=== PATIENT | male | born 1940 | race Caucasian/White ===

== ENCOUNTER 2016-05-06 16:34 | Inpatient (IN) | payer MEDICARE, OTHER ==
[2016-05-06] MEDS ORDERED: NITROGLYCERIN OINT 1 INCH/GM PACKET TOPICAL STA (16:48)
[2016-05-06] MEDS ORDERED: IPRATROPIUM-ALBUTEROL 3 ML NEB INHALATION STA (16:48)
--- NOTE | 2016-05-06 17:07 | ED ---
General Adult HPI - General Chief complaint: Recheck/Abnormal Lab/Rx Stated complaint: Sob Time Seen by Provider: 05/06/16 16:40 Source: RN/MD, EMS, RN notes reviewed Mode of arrival: EMS - History of Present Illness Initial comments: This is a 75-year-old male who presents to the emergency department from [facility] patient was seen here because he was complaining of sinus infection and a urinary tract infection according to the patient. However upon working the patient up they noticed an elevated troponin of 6.5 and they called him a non-STEMI. he still complaining of some congestion in his face which she believes to be a sinusitis. Patient denies ever having any chest pain recently. Patient denies any difficulty breathing or shortness of breath. Patient denies any recent fever or chills. Patient denies any abdominal pain patient denies nausea vomiting or diarrhea. Patient denies headache patient denies any numbness weakness per patient denies being lightheaded dizzy or having any near syncopal episode. - Related Data Home Medications Medication Instructions Recorded Confirmed Aspirin EC [Ecotrin Low Dose] 81 mg PO DAILY 05/06/16 05/06/16 Cefuroxime Axetil [Ceftin] 500 mg PO BID 05/06/16 05/06/16 Furosemide [Lasix] 20 mg PO DAILY 05/06/16 05/06/16 Insulin Glargine [Lantus] 15 unit SQ HS 05/06/16 05/06/16 Insulin Glargine [Lantus] 70 unit SQ QA 05/06/16 05/06/16 Lisinopril [Zestril] 10 mg PO DAILY 05/06/16 05/06/16 Loratadine [Claritin] 10 mg PO DAILY 05/06/16 05/06/16 Lovastatin [Mevacor] 40 mg PO HS 05/06/16 05/06/16 Omeprazole [PriLOSEC] 20 mg PO DAILY 05/06/16 05/06/16 Ondansetron [Zofran ODT] 4 mg PO Q12HR PRN 05/06/16 05/06/16 Tamsulosin HCl [Flomax] 0.4 mg PO DAILY 05/06/16 05/06/16 Allergies Allergy/AdvReac Type Severity Reaction Status Date / Time codeine Allergy Anaphylaxis Verified 05/06/16 17:07 Review of Systems ROS Statement: Those systems with pertinent positive or pertinent negative responses have been documented in the HPI. ROS Other: All systems not noted in ROS Statement are negative. Past Medical History Past Medical History: Diabetes Mellitus, Hyperlipidemia, Hypertension, Myocardial Infarction (MD), Thyroid Disorder Additional Past Medical History / Comment(s): CKD, GERD, History of Any Multi-Drug Resistant Organisms: None Reported Past Surgical History: Appendectomy, Cholecystectomy, Coronary Bypass/CABG, Heart Catheterization With Stent Additional Past Surgical History / Comment(s): Ankle sugery, hip surgery Past Psychological History: No Psychological Hx Reported Smoking Status: Former smoker Past Alcohol Use History: None Reported Past Drug Use History: None Reported General Exam - General Exam Comments Initial Comments: GENERAL: Patient is well-developed and well-nourished. Patient is nontoxic and well- hydrated and is in no acute distress. ENT: Neck is soft and supple. No significant lymphadenopathy is noted. Oropharynx is clear. Moist mucous membranes. Neck has full range of motion without eliciting any pain. EYES: The sclera were anicteric and conjunctiva were pink and moist. Extraocular movements were intact and pupils were equal round and reactive to light. Eyelids were unremarkable. PULMONARY: Significantly decreased breath sounds CARDIOVASCULAR: There is a regular rate and rhythm without any murmurs gallops or rubs. ABDOMEN: Soft and nontender with normal bowel sounds. No palpable organomegaly was noted. There is no palpable pulsatile mass. SKIN: Skin is clear with no lesions or rashes and otherwise unremarkable. NEUROLOGIC: Patient is alert and oriented x3. Cranial nerves II through XII are grossly intact. Motor and sensory are also intact. Normal speech, volume and content. Symmetrical smile. MUSCULOSKELETAL: Normal extremities with adequate strength and full range of motion. No lower extremity swelling or edema. No calf tenderness. LYMPHATICS: No significant lymphadenopathy is noted PSYCHIATRIC: Normal psychiatric evaluation. Normal interpersonal interactions appears functionally intact in deals appropriately with others. No signs of depression. No signs of anxiety. Course Vital Signs 05/06/16 05/06/16 05/06/16 16:37 17:00 17:12 Temperature 98.2 F Pulse Rate 79 76 78 Respiratory 20 Rate Blood Pressure 111/60 O2 Sat by Pulse 96 Oximetry 05/06/16 05/06/16 18:01 18:42 Temperature Pulse Rate 77 80 Respiratory 18 20 Rate Blood Pressure 103/63 109/62 O2 Sat by Pulse 93 L 94 L Oximetry Medical Decision Making - Medical Decision Making EKG shows a normal sinus rhythm at 77 bpm SC interval 148 QRS is under 20 2T intervals 448 QTC is 506. EKG is compared to an old EKG there are no acute abnormalities noted Chest x-ray shows congestive heart failure. Troponin came down from the previous troponin done at the outside facility. Patient remains chest pain- free. I gave the patient Lasix. Patient has an obvious urinary tract infection and was given Levaquin at the other facility. - Lab Data Result diagrams: 05/06/16 17:10 05/06/16 17:10 Lab Results 05/06/16 05/06/16 05/06/16 Range/Units 17:10 17:10 17:10 WBC 10.7 H (3.8-10.6) k/uL RBC 3.55 L (4.30-5.90) m/uL Hgb 10.0 L (13.0-17.5) gm/dL Hct 31.5 L (39.0-53.0) % MCV 88.8 (80.0-100.0) fL MCH 28.2 (25.0-35.0) pg MCHC 31.8 (31.0-37.0) g/dL RDW 14.6 (11.5-15.5) % Plt Count 212 (150-450) k/uL Neutrophils % 93 % Lymphocytes % 3 % Monocytes % 3 % Eosinophils % 0 % Basophils % 1 % Neutrophils # 9.9 H (1.3-7.7) k/uL Lymphocytes # 0.3 L (1.0-4.8) k/uL Monocytes # 0.3 (0-1.0) k/uL Eosinophils # 0.0 (0-0.7) k/uL Basophils # 0.1 (0-0.2) k/uL PT (9.0-12.0) sec INR (<1.1) APTT (22.0-30.0) sec Sodium 138 (137-145) mmol/L Potassium 4.8 (3.5-5.1) mmol/L Chloride 99 (98-107) mmol/L Carbon Dioxide 26 (22-30) mmol/L Anion Gap 13 mmol/L BUN 62 H (9-20) mg/dL Creatinine 2.42 H (0.66-1.25) mg/dL Est GFR (MDRD) Af Amer 32 (>60 ml/min/1.73 sqM) Est GFR (MDRD) Non-Af 26 (>60 ml/min/1.73 sqM) Glucose 299 H (74-99) mg/dL Calcium 8.0 L (8.4-10.2) mg/dL Magnesium 1.5 L (1.6-2.3) mg/dL Total Bilirubin 0.8 (0.2-1.3) mg/dL AST 233 H (17-59) U/L ALT 227 H (21-72) U/L Alkaline Phosphatase 72 (38-126) U/L Total Creatine Kinase 164 (55-170) U/L CK-MB (CK-2) 4.8 H* (0.0-2.4) ng/mL CK-MB (CK-2) Rel Index 2.9 Troponin I 4.400 H* (0.000-0.034) ng/mL NT-Pro-B Natriuret Pep pg/mL Total Protein 5.8 L (6.3-8.2) g/dL Albumin 3.2 L (3.5-5.0) g/dL Urine Color Urine Appearance (Clear) Urine pH (5.0-8.0) Ur Specific [place] (1.001-1.035) Urine Protein (Negative) Urine Glucose (UA) (Negative) Urine Ketones (Negative) Urine Blood (Negative) Urine Nitrate (Negative) Urine Bilirubin (Negative) Urine Urobilinogen (<2.0) mg/dL Ur Leukocyte Esterase (Negative) Urine RBC (0-5) /hpf Urine WBC (0-5) /hpf Urine WBC Clumps (None) /hpf Ur Squamous Epith Cells (0-4) /hpf Urine Bacteria (None) /hpf Hyaline Casts (0-2) /lpf Urine Mucus (None) /hpf 05/06/16 05/06/16 05/06/16 Range/Units 17:10 17:10 17:10 WBC (3.8-10.6) k/uL RBC (4.30-5.90) m/uL Hgb (13.0-17.5) gm/dL Hct (39.0-53.0) % MCV (80.0-100.0) fL MCH (25.0-35.0) pg MCHC (31.0-37.0) g/dL RDW (11.5-15.5) % Plt Count (150-450) k/uL Neutrophils % % Lymphocytes % % Monocytes % % Eosinophils % % Basophils % % Neutrophils # (1.3-7.7) k/uL Lymphocytes # (1.0-4.8) k/uL Monocytes # (0-1.0) k/uL Eosinophils # (0-0.7) k/uL Basophils # (0-0.2) k/uL PT 12.6 H (9.0-12.0) sec INR 1.3 (<1.1) APTT 31.0 H (22.0-30.0) sec Sodium (137-145) mmol/L Potassium (3.5-5.1) mmol/L Chloride (98-107) mmol/L Carbon Dioxide (22-30) mmol/L Anion Gap mmol/L BUN (9-20) mg/dL Creatinine (0.66-1.25) mg/dL Est GFR (MDRD) Af Amer (>60 ml/min/1.73 sqM) Est GFR (MDRD) Non-Af (>60 ml/min/1.73 sqM) Glucose (74-99) mg/dL Calcium (8.4-10.2) mg/dL Magnesium (1.6-2.3) mg/dL Total Bilirubin (0.2-1.3) mg/dL AST (17-59) U/L ALT (21-72) U/L Alkaline Phosphatase (38-126) U/L Total Creatine Kinase (55-170) U/L CK-MB (CK-2) (0.0-2.4) ng/mL CK-MB (CK-2) Rel Index Troponin I (0.000-0.034) ng/mL NT-Pro-B Natriuret Pep 92354 pg/mL Total Protein (6.3-8.2) g/dL Albumin (3.5-5.0) g/dL Urine Color Yellow Urine Appearance Turbid (Clear) Urine pH 5.0 (5.0-8.0) Ur Specific [place] 1.009 (1.001-1.035) Urine Protein 1+ H (Negative) Urine Glucose (UA) Trace H (Negative) Urine Ketones Negative (Negative) Urine Blood Small H (Negative) Urine Nitrate Negative (Negative) Urine Bilirubin Negative (Negative) Urine Urobilinogen <2.0 (<2.0) mg/dL Ur Leukocyte Esterase Large H (Negative) Urine RBC 5 (0-5) /hpf Urine WBC >182 H (0-5) /hpf Urine WBC Clumps Many H (None) /hpf Ur Squamous Epith Cells 1 (0-4) /hpf Urine Bacteria Rare H (None) /hpf Hyaline Casts 205 H (0-2) /lpf Urine Mucus Rare H (None) /hpf Critical Care Time Critical Care Time: Yes Total Critical Care Time: 35 Disposition Clinical Impression: Pulmonary edema, Urinary tract infection, Non-STEMI (non-ST elevated myocardial infarction), Renal failure, acute Disposition: ADMITTED IP TO THIS [facility] Time of Disposition: 18:55
[2016-05-06 17:22] LABS: Basophils # (A) 0.1 k/uL (0-0.2); Basophils % (A) 1 %; CH 29.4; CHCM 33.4; Eosinophils % (A) 0 %; HCT 31.5 % (39.0-53.0); HDW 3.24; Luc # (Auto) 0.03; Luc % (Auto) 0; Lymphocytes # (A) 0.3 k/uL (1.0-4.8); Lymphocytes % (A) 3 %; MCH 28.2 pg (25.0-35.0); MCHC 31.8 g/dL (31.0-37.0); MCV 88.8 fL (80.0-100.0); Mean Platelet Volume 9.4; Monocytes # (A) 0.3 k/uL (0-1.0); Monocytes % (A) 3 %; Neutrophils # (A) 9.9 k/uL (1.3-7.7); Neutrophils % (A) 93 %; RBC 3.55 m/uL (4.30-5.90); RDW 14.6 % (11.5-15.5); WBC 10.7 k/uL (3.8-10.6); WBC (Perox) 11.39
[2016-05-06 17:30] LABS: INR 1.3 (<1.1); Magnesium 1.5 mg/dL (1.6-2.3); Potassium 4.8 mmol/L (3.5-5.1); Prothrombin Time 12.6 sec (9.0-12.0); Total Bilirubin 0.8 mg/dL (0.2-1.3); Total Protein 5.8 g/dL (6.3-8.2)
[2016-05-06 17:31] LABS: Appearance,Urine Turbid (Clear); Bacteria,Urine Rare /hpf; Bilirubin,Urine Negative (Negative); Glucose,Urine (UA) Trace (Negative); Ketones,Urine Negative (Negative); Leukocyte Esterase,Urine Large (Negative); Mucus,Urine Rare /hpf; Nitrite,Urine Negative (Negative); Particle Count 31128; Protein,Urine 1+ (Negative); RBC,Urine 5 /hpf (0-5); Specific Gravity,Urine 1.009 (1.001-1.035); Squamous Epithelial Cell,Urine 1 /hpf (0-4); UA Billing (MACRO vs. MICRO) MICRO; Urobilinogen,Urine <2.0 mg/dL (<2.0); WBC,Urine >182 /hpf (0-5)
--- NOTE | 2016-05-06 17:37 | XR ---
EXAMINATION TYPE: XR chest 2V DATE OF EXAM: 05/06/2016 5:33 PM COMPARISON: Q. Day HISTORY: Chest pain TECHNIQUE: Frontal and lateral views of the chest are obtained. FINDINGS: The heart appears enlarged. There is pulmonary vascular congestion and pulmonary interstit ial edema. There is blunting of both costophrenic angles posteriorly on the lateral view. There are c hest leads. There are sternal wires. IMPRESSION: There is evidence of congestive heart failure with pulmonary interstitial edema and pleu ral effusions that is unchanged compared to exam earlier today. Previous exam is from [facility].
[2016-05-06] MEDS: HEPARIN SODIUM,PORCINE/D5W PMX 25,000 UNIT in DEXTROSE/WATER 1 500ML.BAG IV SCH (17:58)
[2016-05-06 18:11] LABS: Creatine Kinase MB 4.8 ng/mL (0.0-2.4); Troponin I 4.4 ng/mL (0.000-0.034)
[2016-05-06] MEDS ORDERED: FUROSEMIDE 10 MG/ML 4 ML VIAL IV STA (18:53)
[2016-05-06] MEDS ORDERED: NITROGLYCERIN SL TABS 0.4 MG TAB SUBLINGUAL PRN (18:56)
[2016-05-06 21:10] LABS: Glucose,Whole Blood 412 mg/dL (75-99)
[2016-05-06] MEDS ORDERED: INSULIN GLARGINE 100 UNIT/ML 10 ML VIAL SQ SCH (21:15)
[2016-05-06] MEDS ORDERED: LEVOFLOXACIN 750MG-D5W PMX 750 MG in DEXTROSE/WATER 1 150ML.BAG IVPB SCH (22:00)
[2016-05-06] MEDS: INSULIN LISPRO (humaLOG) 300 UNIT/3 ML VIAL SQ SCH (22:07)
[2016-05-06 23:09] LABS: Hemoglobin A1C 8.2 % (4.2-6.1)
[2016-05-06 23:23] LABS: Creatine Kinase MB 5.1 ng/mL (0.0-2.4); Troponin I 3.32 ng/mL (0.000-0.034)
[2016-05-06] MEDS: FUROSEMIDE 10 MG/ML 2 ML VIAL IV SCH (23:36)
[2016-05-06] MEDS: NITROGLYCERIN OINT 1 INCH/GM PACKET TOPICAL SCH (23:59)
[2016-05-07] MEDS ORDERED: HEPARIN SODIUM,PORCINE 5,000 UNIT/ML 1 ML VIAL IV STA (00:40)
[2016-05-07] MEDS: FUROSEMIDE 10 MG/ML 2 ML VIAL IV SCH ×2 (02:58→08:24)
[2016-05-07 06:11] LABS: Glucose,Whole Blood 405 mg/dL (75-99)
[2016-05-07 06:41] LABS: Cholesterol 187 mg/dL (<200); HDL Cholesterol 36 mg/dL (40-60); Triglycerides 141 mg/dL (<150)
[2016-05-07] MEDS: INSULIN LISPRO (humaLOG) 300 UNIT/3 ML VIAL SQ SCH ×4 (06:57→21:08)
[2016-05-07] MEDS: NITROGLYCERIN OINT 1 INCH/GM PACKET TOPICAL SCH ×4 (06:57→23:17)
[2016-05-07 07:27] LABS: Creatine Kinase MB 4.9 ng/mL (0.0-2.4)
[2016-05-07 07:28] LABS: Troponin I 2.71 ng/mL (0.000-0.034)
[2016-05-07] MEDS: ASPIRIN 325 MG TAB PO SCH (08:24)
[2016-05-07] MEDS: INSULIN GLARGINE 100 UNIT/ML 10 ML VIAL SQ SCH ×2 (08:28→20:57)
--- NOTE | 2016-05-07 10:19 | P.CRDCN ---
History of Present Illness Consult date: 05/07/16 Requesting physician: Ishmael Fields Consult reason: congestive heart failure Chief complaint: Sinus infection History of present illness: This is a 75-year-old gentleman with history of coronary artery disease and prior bypass surgery several years ago, patient states approximately 3 years ago he underwent stent placement at [facility], details of that currently unavailable, states that he presented to [facility] with symptoms of it sinus infection as well as UTI. According to the patient he states that he was in [facility] a couple of weeks ago.sPatient states she's been feeling extremely weak at home, has not been eating for the past couple of days. He has had a productive cough of white and yellow sputum and has noticed himself to be quite wheezy. He denies having any chest pain. Along with other labs data, patient had a troponin drawn at [place] which came back to be abnormal, and for this reason the patient was transferred to [facility] for further evaluation. Troponin at [place] was 6.5. BNP level 3270. BUN 58, creatinine 2.7, sodium 137, potassium 4.1. WBC 12.8, hemoglobin 11.1, platelet count 213. EKG on arrival there showed a normal sinus rhythm with incomplete left bundle branch block pattern and nonspecific inferior lateral ST-T wave changes. EKG on arrival here showed normal sinus rhythm and incomplete left bundle branch block pattern and minimal inferior lateral ST-T wave changes. Lab data on arrival here, hemoglobin 10.0, potassium 4.8, BUN 62, creatinine 2.4. AST 233, ALT 227, mag level I.5, BNP level 19,400, troponin 4.4, 3.3, 2.7. Positive UTI. Past Medical History Past Medical History: Diabetes Mellitus, GERD/Reflux, Hyperlipidemia, Hypertension, Myocardial Infarction (OR), Prostate Disorder, Thyroid Disorder Additional Past Medical History / Comment(s): GERD, kidney stones,shingles few years ago, sinus infection, stated had uti and blood in urine idc placed when at [facility] 02-18-17 till 04-25-16.ckd was previous;y charted but when asked if had any kidney dz pt stated no. Last Myocardial Infarction Date:: 1993 History of Any Multi-Drug Resistant Organisms: None Reported Past Surgical History: Appendectomy, Cholecystectomy, Coronary Bypass/CABG, Heart Catheterization With Stent, Tonsillectomy Additional Past Surgical History / Comment(s): ltAnkle orif-plate in place,rt hip surgery d/t broken hip pt stated not sure what they did.quad bypass 1993- ( at [facility]). few years after cabg had heart cath with stents(at [facility]) Past Anesthesia/Blood Transfusion Reactions: No Reported Reaction Date of Last Stent Placement:: unsure of date Past Psychological History: No Psychological Hx Reported Smoking Status: Former smoker Past Alcohol Use History: None Reported Additional Past Alcohol Use History / Comment(s): started smoking at age 17, smoked 1ppd, cut down to 3 cig per day recently then quit 3 days ago Past Drug Use History: None Reported - Past Family History Father Family Medical History: No Reported History Mother Family Medical History: No Reported History Medications and Allergies Home Medications Medication Instructions Recorded Confirmed Type Aspirin EC [Ecotrin Low Dose] 81 mg PO DAILY 05/06/16 05/06/16 History Cefuroxime Axetil [Ceftin] 500 mg PO BID 05/06/16 05/06/16 History Furosemide [Lasix] 20 mg PO DAILY 05/06/16 05/06/16 History Insulin Glargine [Lantus] 15 unit SQ HS 05/06/16 05/06/16 History Insulin Glargine [Lantus] 70 unit SQ QA 05/06/16 05/06/16 History Lisinopril [Zestril] 10 mg PO DAILY 05/06/16 05/06/16 History Loratadine [Claritin] 10 mg PO DAILY 05/06/16 05/06/16 History Lovastatin [Mevacor] 40 mg PO HS 05/06/16 05/06/16 History Omeprazole [PriLOSEC] 20 mg PO DAILY 05/06/16 05/06/16 History Ondansetron [Zofran ODT] 4 mg PO Q12HR PRN 05/06/16 05/06/16 History Tamsulosin HCl [Flomax] 0.4 mg PO DAILY 05/06/16 05/06/16 History Allergies Allergy/AdvReac Type Severity Reaction Status Date / Time codeine Allergy Anaphylaxis Verified 05/06/16 17:07 Physical Exam Vitals: Vital Signs Temp Pulse Pulse Resp BP BP Pulse Ox 05/07/16 04:00 97.2 F L 80 18 100/55 96 05/07/16 00:00 97 F L 84 18 101/57 93 L 05/06/16 20:30 97 F L 83 18 118/57 95 05/06/16 19:23 97.3 F L 79 18 108/65 95 Intake and Output 05/06/16 05/07/16 05/07/16 22:59 06:59 14:59 Intake Total 132 165.636 Output Total 900 Balance -768 165.636 Intake: Intake, IV Titration 132 165.636 Amount Heparin Sodium,Porcine/ 132 165.636 D5w Pmx 25,000 unit In Dextrose/Water 1 500ml. bag @ 10.549 UNITS/KG/HR 20 mls/hr IV .Q24H COUNT INCLUDES THE [facility] Rx #:[id number] Output: Urine 900 Other: Voiding Method Indwelling Catheter Indwelling Catheter Indwelling Catheter # Bowel Movements 1 Weight 92.5 kg 92.5 kg Patient Weight 05/08/16 06:59 Weight 92.5 kg PHYSICAL EXAMINATION: HEENT: Head is atraumatic, normocephalic. Pupils equal, round. Neck is supple. There is elevated jugular venous pressure. HEART EXAMINATION: S1 and S2 1 systolic murmur is heard. CHEST EXAMINATION: Lungs reveal scattered coarse wheezes with diminished air entry to bilateral bases. ABDOMEN: Soft, obese, nontender. Bowel sounds are heard. No organomegaly noted. EXTREMITIES: 2+ peripheral pulses with trace evidence of peripheral edema and no calf tenderness noted. NEUROLOGIC patient is awake, alert and oriented -3. . Results 05/06/16 17:10 05/06/16 17:10 Cardiac Enzymes 05/06/16 05/07/16 Range/Units 22:26 05:53 CK-MB (CK-2) 5.1 H* 4.9 H* (0.0-2.4) ng/mL Troponin I 3.320 H* 2.710 H* (0.000-0.034) ng/mL Coagulation 05/06/16 05/07/16 Range/Units 22:26 05:57 APTT 30.4 H 44.3 H (22.0-30.0) sec Lipids 05/07/16 Range/Units 05:57 Triglycerides 141 (<150) mg/dL Cholesterol 187 (<200) mg/dL HDL Cholesterol 36 L (40-60) mg/dL Current Medications Generic Name Dose Route Start Last Admin Trade Name Freq PRN Reason Stop Dose Admin Aspirin 325 mg 05/07/16 09:00 05/07/16 08:24 Aspirin PO 325 mg DAILY JAVIER Administration Furosemide 20 mg 05/07/16 00:00 05/07/16 08:24 Lasix IV 20 mg Q8HR JAVIER Administration Heparin Sodium/Dextrose 25,000 500 mls @ 20 mls/hr 05/06/16 17:45 05/07/16 07 :01 unit/ IV Solution IV 15.549 units/kg/hr .Q24H JAVIER 29.48 mls/hr Protocol Titration 10.549 UNITS/KG/HR Levofloxacin 750 mg/ IV 150 mls @ 100 mls/hr 05/06/16 22:00 05/06/16 22:08 Solution IVPB 100 mls/hr Q24H JAVIER Administration Insulin Glargine 15 unit 05/06/16 21:15 05/06/16 21:55 Lantus SQ 15 unit HS JAVIER Administration Insulin Glargine 70 unit 05/07/16 09:00 05/07/16 08:28 Lantus SQ 70 unit QAM JAVIER Administration Insulin Human Lispro 0 unit 05/06/16 22:00 05/07/16 06:57 Humalog SQ 8 unit ACHS JAVIER Administration Protocol Nitroglycerin 1 inch 05/07/16 00:00 05/07/16 06:57 Nitro-Bid Oint TOPICAL 1 inch Q6HR JAVIER Administration Nitroglycerin 0.4 mg 05/06/16 18:56 Nitrostat SUBLINGUAL Q5M PRN Chest Pain Intake and Output 05/06/16 05/07/16 05/07/16 22:59 06:59 14:59 Intake Total 132 165.636 Output Total 900 Balance -768 165.636 Intake: Intake, IV Titration 132 165.636 Amount Heparin Sodium,Porcine/ 132 165.636 D5w Pmx 25,000 unit In Dextrose/Water 1 500ml. bag @ 10.549 UNITS/KG/HR 20 mls/hr IV .Q24H COUNT INCLUDES THE [facility] Rx #:[id number] Output: Urine 900 Other: Voiding Method Indwelling Catheter Indwelling Catheter Indwelling Catheter # Bowel Movements 1 Weight 92.5 kg 92.5 kg Patient Weight 05/08/16 06:59 Weight 92.5 kg EKG Interpretations (text) EKG shows normal sinus rhythm with inferior lateral ST-T wave changes. Assessment and Plan Plan: Assessment and plan #1 congestive cardiac failure, unsure of patient's LV function at this time. Currently on IV Lasix. #2 troponin abnormality suggestive of non-Q-wave myocardial infarction. EKG shows normal sinus rhythm with nonspecific inferior lateral ST-T wave changes. #3 known history of coronary artery disease with prior bypass surgery, patient also states he underwent stent placement approximately 3 years ago at [facility]. #4 hypertension Number 5 diabetes #6 hyperlipidemia #7 history of nicotine dependence #8 sinus infection #9 UTI #10 abnormal LFTs, likely secondary to liver congestion #11 acute on chronic renal insufficiency Plan We will obtain records of patient's recent admission to [facility]. We will also request data from [facility] on the patient's recent stent placements. We will repeat an echocardiogram with Doppler study here in view of the abnormal troponins. Continue to diurese the patient with IV Lasix. Continue IV heparin. Statin is currently on hold because of abnormal LFTs, lisinopril currently on hold because of abnormal renal function. It appears the patient may have had a non-STEMI, we need to diurese the patient first. He may require cardiac catheterization down the line. Further recommendations to follow. DNP note has been reviewed, I agree with a documented findings and plan of care. Patient was seen and examined.
[2016-05-07] MEDS ORDERED: IPRATROPIUM-ALBUTEROL 3 ML NEB INHALATION PRN (11:14)
[2016-05-07] MEDS: IPRATROPIUM-ALBUTEROL 3 ML NEB INHALATION SCH ×3 (11:21→19:51)
--- NOTE | 2016-05-07 11:38 | ECHOF ---
Referral Reason:chf MEASUREMENTS -------- HEIGHT: 180.3 cm WEIGHT: 92.1 kg BP: 105/59 IVSd: 1.2 cm (0.6 - 1.1) LVIDd: 5.7 cm (3.9 - 5.3) LVPWd: 1.4 cm (0.6 - 1.1) IVSs: 1.7 cm LVIDs: 5.3 cm LVPWs: 1.4 cm Ao Diam: 3.3 cm (2.0 - 3.7) AV Cusp: 1.7 cm (1.5 - 2.6) LA Diam: 4.4 cm (2.7 - 3.8) MV EXCURSION: 14.924 mm (> 18.000) MV EF SLOPE: 80 mm/s (70 - 150) EPSS: 1.1 cm MV E Car: 1.52 m/s MV DecT: 171 ms MV A Car: 0.92 m/s MV E/A Ratio: 1.64 AR PHT: 348 ms RAP: 5.00 mmHg RVSP: 38.86 mmHg FINDINGS -------- Sinus rhythm. This was a technically difficult study with suboptimal views. The left ventricular size is normal. There is mild concentric left ventricular hypertrophy. There is severe global hypokinesis of LV . Overall left ventricular systolic function is severely impaired with, an EF between 20 - 25 %. The right ventricle is normal in size and function. The left atrium is mildly dilated. The right atrium is normal in size. 1.5mg of Definity was utilized for enhancement of images Aortic valve is trileaflet and is mildly thickened. Trace amount of aortic regurgitation. The mitral valve leaflets are mildly thickened. Mild mitral annular calcification present. Moderate mitral regurgitation is present. Mild tricuspid regurgitation present. The right ventricular systolic pressure, as measured by Doppler, is 38.86mmHg. Pulmonic valve appears structurally normal. The aortic root, ascending aorta and aortic arch are normal. The pericardium is normal. CONCLUSIONS -------- 1. Sinus rhythm. 2. Aortic valve is trileaflet and is mildly thickened. 3. Trace amount of aortic regurgitation. 4. The mitral valve leaflets are mildly thickened. 5. Mild mitral annular calcification present. 6. Moderate mitral regurgitation is present. 7. Mild tricuspid regurgitation present. 8. The right ventricular systolic pressure, as measured by Doppler, is 38.86mmHg. 9. Pulmonic valve appears structurally normal. 10. The aortic root, ascending aorta and aortic arch are normal. 11. The pericardium is normal. 12. This was a technically difficult study with suboptimal views. 13. There is mild concentric left ventricular hypertrophy. 14. There is severe global hypokinesis of LV . 15. Overall left ventricular systolic function is severely impaired with, an EF between 20 - 25 %. 16. The right ventricle is normal in size and function. 17. The left atrium is mildly dilated. 18. The right atrium is normal in size. 19. 1.5mg of Definity was utilized for enhancement of images POWER PLANT ASSISTANT: Kelsie Peguero RDCS
[2016-05-07 12:11] LABS: Glucose,Whole Blood 228 mg/dL (75-99)
--- NOTE | 2016-05-07 12:29 | P.HPIM ---
History of Present Illness H&P Date: 05/07/16 Chief Complaint: gen weakness 75-year-old gentleman with history of CAD status post CABG who was recently admitted to [facility] underwent workup in regards to urinary retention. Patient was sent home on a Liang catheter by Dr. Aguirre. Patient apparently had some workup in regards to his heart, patient had a echocardiogram which revealed a ejection fraction of 40-45% done. Patient over the last few days has been feeling generally weak. Denies having any fevers, chills, nausea, vomiting. Patient has been having some postnasal drip. Patient had a cardiac catheterization 4 years ago had 2 stents placed at that time at [facility] patient had a CABG done in 1993. States to be feeling slightly better at this time. Patient's creatinine at that time was 2 currently is at 2.4. Denies any active chest pain or difficulty breathing at this time. Denies having orthopnea or PND is what this time. Review of Systems All systems: negative (Noted in HPI) Past Medical History Past Medical History: Diabetes Mellitus, GERD/Reflux, Hyperlipidemia, Hypertension, Myocardial Infarction ([place]), Prostate Disorder, Thyroid Disorder Additional Past Medical History / Comment(s): GERD, kidney stones,shingles few years ago, sinus infection, stated had uti and blood in urine idc placed when at [facility] 02-18-17 till 04-25-16.ckd was previous;y charted but when asked if had any kidney dz pt stated no. Last Myocardial Infarction Date:: 1993 History of Any Multi-Drug Resistant Organisms: None Reported Past Surgical History: Appendectomy, Cholecystectomy, Coronary Bypass/CABG, Heart Catheterization With Stent, Tonsillectomy Additional Past Surgical History / Comment(s): ltAnkle orif-plate in place,rt hip surgery d/t broken hip pt stated not sure what they did.quad bypass 1993- ( at [facility]). few years after cabg had heart cath with stents(at [facility]) Past Anesthesia/Blood Transfusion Reactions: No Reported Reaction Date of Last Stent Placement:: unsure of date Past Psychological History: No Psychological Hx Reported Smoking Status: Former smoker Past Alcohol Use History: None Reported Additional Past Alcohol Use History / Comment(s): started smoking at age 17, smoked 1ppd, cut down to 3 cig per day recently then quit 3 days ago Past Drug Use History: None Reported - Past Family History Father Family Medical History: No Reported History Mother Family Medical History: No Reported History Medications and Allergies Home Medications Medication Instructions Recorded Confirmed Type Aspirin EC [Ecotrin Low Dose] 81 mg PO DAILY 05/06/16 05/06/16 History Cefuroxime Axetil [Ceftin] 500 mg PO BID 05/06/16 05/06/16 History Furosemide [Lasix] 20 mg PO DAILY 05/06/16 05/06/16 History Insulin Glargine [Lantus] 15 unit SQ HS 05/06/16 05/06/16 History Insulin Glargine [Lantus] 70 unit SQ QAM 05/06/16 05/06/16 History Lisinopril [Zestril] 10 mg PO DAILY 05/06/16 05/06/16 History Loratadine [Claritin] 10 mg PO DAILY 05/06/16 05/06/16 History Lovastatin [Mevacor] 40 mg PO HS 05/06/16 05/06/16 History Omeprazole [PriLOSEC] 20 mg PO DAILY 05/06/16 05/06/16 History Ondansetron [Zofran ODT] 4 mg PO Q12HR PRN 05/06/16 05/06/16 History Tamsulosin HCl [Flomax] 0.4 mg PO DAILY 05/06/16 05/06/16 History Allergies Allergy/AdvReac Type Severity Reaction Status Date / Time codeine Allergy Anaphylaxis Verified 05/06/16 17:07 Physical Exam Vitals: Vital Signs Temp Pulse Pulse Resp BP BP Pulse Ox 05/07/16 11:20 96.9 F L 81 18 116/59 93 L 05/07/16 11:18 76 05/07/16 08:15 76 24 05/07/16 08:00 97.3 F L 76 24 105/59 05/07/16 04:00 97.2 F L 80 18 100/55 96 05/07/16 00:00 97 F L 84 18 101/57 93 L 05/06/16 20:30 97 F L 83 18 118/57 95 05/06/16 19:23 97.3 F L 79 18 108/65 95 Intake and Output 05/06/16 05/07/16 05/07/16 22:59 06:59 14:59 Intake Total 132 400.836 Output Total 900 Balance -768 400.836 Intake: IV 235.2 Heparin Sodium,Porcine/ 235.2 D5w Pmx 25,000 unit In Dextrose/Water 1 500ml. bag @ 10.549 UNITS/KG/HR 20 mls/hr IV .Q24H JAVIER Rx #:[id number] Intake, IV Titration 132 165.636 Amount Heparin Sodium,Porcine/ 132 165.636 D5w Pmx 25,000 unit In Dextrose/Water 1 500ml. bag @ 10.549 UNITS/KG/HR 20 mls/hr IV .Q24H JAVIER Rx #:[id number] Output: Urine 900 Other: Voiding Method Indwelling Catheter Indwelling Catheter Indwelling Catheter # Bowel Movements 1 Weight 92.5 kg 92.5 kg Patient Weight 05/08/16 06:59 Weight 92.5 kg Gen. appearance alert oriented 3 in no distress Face no sinus tenderness is appreciated Lungs good air entry trace crackles appreciated at the bases Heart S1-S2 heard regular rate and rhythm S3 is not appreciated Abdomen is soft nontender no organomegaly Lower extremities trace edema is appreciated Neuro no focal motor or sensory deficits noted. Results CBC & Chem 7: 05/06/16 17:10 05/06/16 17:10 Labs: Abnormal Lab Results - Last 24 Hours (Table) 05/06/16 05/06/16 05/06/16 Range/Units 21:08 22:26 22:26 APTT (22.0-30.0) sec POC Glucose (mg/dL) 412 H (75-99) mg/dL Hemoglobin A1c 8.2 H (4.2-6.1) % CK-MB (CK-2) 5.1 H* (0.0-2.4) ng/mL Troponin I 3.320 H* (0.000-0.034) ng/mL LDL Cholesterol, Calc (0-99) mg/dL HDL Cholesterol (40-60) mg/dL 05/06/16 05/07/16 05/07/16 Range/Units 22:26 05:53 05:57 APTT 30.4 H (22.0-30.0) sec POC Glucose (mg/dL) (75-99) mg/dL Hemoglobin A1c (4.2-6.1) % CK-MB (CK-2) 4.9 H* (0.0-2.4) ng/mL Troponin I 2.710 H* (0.000-0.034) ng/mL LDL Cholesterol, Calc 123 H (0-99) mg/dL HDL Cholesterol 36 L (40-60) mg/dL 05/07/16 05/07/16 05/07/16 Range/Units 05:57 06:08 11:59 APTT 44.3 H (22.0-30.0) sec POC Glucose (mg/dL) 405 H 228 H (75-99) mg/dL Hemoglobin A1c (4.2-6.1) % CK-MB (CK-2) (0.0-2.4) ng/mL Troponin I (0.000-0.034) ng/mL LDL Cholesterol, Calc (0-99) mg/dL HDL Cholesterol (40-60) mg/dL Thrombosis Risk Factor Assmnt - Choose All That Apply Any of the Below Risk Factors Present?: Yes Each Factor Represents 1 point: Heart failure (<1month), Obesity (BMI >25), Swollen legs (current) Other Risk Factors: Yes Each Risk Factor Represents 2 Points: Age 61-74 years Thrombosis Risk Factor Assessment Total Risk Factor Score: 5 Thrombosis Risk Factor Assessment Level: High Risk Assessment and Plan Plan: #1 indeterminate troponin leak rule out ACS patient's EF has decreased from 45- 25%. #2 acute on chronic kidney disease stage III #3 acute urinary tract infection #4 diabetes most type II last HbA1c is 8.2 #5 history of hypertension #6 CAD #7 disability #8 COPD Plan Continue diuretics and 20 mg IV every 8 hours. Monitor urine output. We'll obtain a repeat renal ultrasound to ensure no hydronephrosis S patient recently had obstruction Urine labs will be done. Rocephin to be started. Unsure if this is actually a UTI as patient does not have a white count at this time. However will treat as patient does appear to be generally feeling weak. Repeat renal function in the a.m. Continue IV heparin.
[2016-05-07] MEDS: HEPARIN SODIUM,PORCINE/D5W PMX 25,000 UNIT in DEXTROSE/WATER 1 500ML.BAG IV SCH (14:11)
[2016-05-07] MEDS: HEPARIN SODIUM,PORCINE 5,000 UNIT/ML 1 ML VIAL IV PRN (14:18)
--- NOTE | 2016-05-07 14:46 | P.NPCON ---
History of Present Illness - Reason for Consult acute renal failure - History of Present Illness Consultation: Acute kidney injury History of present illness: Patient is a 75-year-old male seen in renal consultation for acute kidney injury. Unclear as to what his baseline renal function is. His creatinine is 2.4 this admission. Patient was recently admitted at [facility] and at that time was discharged home with a Liang catheter due to urinary retention. He still is a Liang catheter in place. Patient felt weak upon discharge. He was having some diarrhea and his appetite was also poor for about 2 days. He was able to get up and subsequently went to [facility]. He was subsequently sent to [facility] for further care. He is noted to have ejection fraction of 20-25% with moderate mitral regurgitation. He is nonoliguric. His appetite is not improved. No active chest pain or shortness of breath. Denies any hematuria or dysuria. Denies use of NSAIDs at home. Vital signs are stable. General: The patient appeared well nourished and normally developed. HEENT: Head exam is unremarkable. Neck is without jugular venous distension. LUNGS: Lungs are clear to auscultation and percussion. Breath sounds decreased. HEART: Rate and Rhythm are regular. First and second heart sounds normal. No murmurs, rubs or gallops. ABDOMEN: Abdominal exam reveals normal bowel sounds. Non-tender and non- distended. No evidence of peritonitis. EXTREMITITES: No clubbing, cyanosis, or edema. Past Medical History Past Medical History: Diabetes Mellitus, GERD/Reflux, Hyperlipidemia, Hypertension, Myocardial Infarction ([place]), Prostate Disorder, Thyroid Disorder Additional Past Medical History / Comment(s): GERD, kidney stones,shingles few years ago, sinus infection, stated had uti and blood in urine idc placed when at [facility] 02-18-17 till 04-25-16.ckd was previous;y charted but when asked if had any kidney dz pt stated no. Last Myocardial Infarction Date:: 1993 History of Any Multi-Drug Resistant Organisms: None Reported Past Surgical History: Appendectomy, Cholecystectomy, Coronary Bypass/CABG, Heart Catheterization With Stent, Tonsillectomy Additional Past Surgical History / Comment(s): ltAnkle orif-plate in place,rt hip surgery d/t broken hip pt stated not sure what they did.quad bypass 1993- ( at [facility]). few years after cabg had heart cath with stents(at [facility]) Past Anesthesia/Blood Transfusion Reactions: No Reported Reaction Date of Last Stent Placement:: unsure of date Past Psychological History: No Psychological Hx Reported Smoking Status: Former smoker Past Alcohol Use History: None Reported Additional Past Alcohol Use History / Comment(s): started smoking at age 17, smoked 1ppd, cut down to 3 cig per day recently then quit 3 days ago Past Drug Use History: None Reported - Past Family History Father Family Medical History: No Reported History Mother Family Medical History: No Reported History Medications and Allergies Home Medications Medication Instructions Recorded Confirmed Type Aspirin EC [Ecotrin Low Dose] 81 mg PO DAILY 05/06/16 05/06/16 History Cefuroxime Axetil [Ceftin] 500 mg PO BID 05/06/16 05/06/16 History Furosemide [Lasix] 20 mg PO DAILY 05/06/16 05/06/16 History Insulin Glargine [Lantus] 15 unit SQ HS 05/06/16 05/06/16 History Insulin Glargine [Lantus] 70 unit SQ QA 05/06/16 05/06/16 History Lisinopril [Zestril] 10 mg PO DAILY 05/06/16 05/06/16 History Loratadine [Claritin] 10 mg PO DAILY 05/06/16 05/06/16 History Lovastatin [Mevacor] 40 mg PO HS 05/06/16 05/06/16 History Omeprazole [PriLOSEC] 20 mg PO DAILY 05/06/16 05/06/16 History Ondansetron [Zofran ODT] 4 mg PO Q12HR PRN 05/06/16 05/06/16 History Tamsulosin HCl [Flomax] 0.4 mg PO DAILY 05/06/16 05/06/16 History Allergies Allergy/AdvReac Type Severity Reaction Status Date / Time codeine Allergy Anaphylaxis Verified 05/06/16 17:07 Physical Exam Vitals: Vital Signs Temp Pulse Pulse Resp BP BP Pulse Ox 05/07/16 11:20 96.9 F L 81 18 116/59 93 L 05/07/16 11:18 76 05/07/16 08:15 76 24 05/07/16 08:00 97.3 F L 76 24 105/59 05/07/16 04:00 97.2 F L 80 18 100/55 96 05/07/16 00:00 97 F L 84 18 101/57 93 L 05/06/16 20:30 97 F L 83 18 118/57 95 05/06/16 19:23 97.3 F L 79 18 108/65 95 Intake and Output 05/06/16 05/07/16 05/07/16 22:59 06:59 14:59 Intake Total 132 803.200 Output Total 900 Balance -768 803.200 Intake: IV 235.2 Heparin Sodium,Porcine/ 235.2 D5w Pmx 25,000 unit In Dextrose/Water 1 500ml. bag @ 10.549 UNITS/KG/HR 20 mls/hr IV .Q24H J[facility]IER Rx #:[id number] Intake, IV Titration 132 368.000 Amount Heparin Sodium,Porcine/ 132 368.000 D5w Pmx 25,000 unit In Dextrose/Water 1 500ml. bag @ 10.549 UNITS/KG/HR 20 mls/hr IV .Q24H JAVIER Rx #:[id number] Oral 200 Output: Urine 900 Other: Voiding Method Indwelling Catheter Indwelling Catheter Indwelling Catheter # Bowel Movements 1 1 Weight 92.5 kg 92.5 kg Patient Weight 05/08/16 06:59 Weight 92.5 kg Results - Lab Results Most recent lab results Calcium 8.0 mg/dL (8.4-10.2) L 05/06/16 17:10 Magnesium 1.5 mg/dL (1.6-2.3) L 05/06/16 17:10 05/06/16 17:10 05/06/16 17:10 Assessment and Plan Plan: Assessment: #1. Nonoliguric acute kidney injury secondary to cardiorenal syndrome and NSTEMI. Creatinine 2.4 this admission. Unclear as to what his baseline renal function is. #2. History of urinary retention. Currently is a Liang catheter in place. #3. Urinary tract infection. #4. Systolic CHF with ejection fraction of 20-25% with moderate mitral regurgitation. #5. Elevated troponin. Questionable and STEMI. #6. Insulin-dependent diabetes mellitus. #7. Rule out chronic kidney disease. Unclear as to what his baseline renal function is. He does have proteinuria noted on urinalysis which is likely due to underlying diabetic kidney disease. Plan: I will change the Lasix to 40 mg IV twice daily. Check urine culture. Follow-up for renal ultrasound. Maintain Liang catheter. Avoid nephrotoxic agents and hypotensive episodes. Repeat electrolytes in the morning. Thank you for the consultation. I will continue to follow the patient with you during his hospital stay.
--- NOTE | 2016-05-07 15:19 | US ---
EXAMINATION TYPE: US kidneys/renal and bladder DATE OF EXAM: 05/07/2016 3:03 PM COMPARISON: No previous CLINICAL HISTORY: ARF, UTI. EXAM MEASUREMENTS: Right Kidney: 11.1 x 6.7 x 6.3cm Left Kidney: 10.3 x 4.9 x 5.1cm TECHNOLOGIST IMPRESSION: Right Kidney: 1.2cm echogenic shadowing focus inferior pole Left Kidney: multiple small cystic areas with largest measuring 1.8cm Bladder: limited visualization, not fully distended, velasquez catheter Bilateral Jets seen: no There is no evidence for hydronephrosis at this point in time. No masses are identified. Cortical me dullary differentiation is maintained. The urinary bladder is catheterized. IMPRESSION: Nephrolithiasis lower pole right kidney, simple cyst left kidney.
[2016-05-07 16:53] LABS: Glucose,Whole Blood 214 mg/dL (75-99)
[2016-05-07] MEDS: METOPROLOL TARTRATE 12.5 MG TAB PO SCH (20:59)
[2016-05-07] MEDS: FUROSEMIDE 10 MG/ML 10 ML VIAL IV SCH (21:00)
[2016-05-07] MEDS ORDERED: ATORVASTATIN 80 MG TAB PO SCH (21:00)
[2016-05-07 21:08] LABS: Glucose,Whole Blood 204 mg/dL (75-99)
[2016-05-08] MEDS: MELATONIN 3 MG TABLET PO SCH ×2 (01:03→22:02)
[2016-05-08] MEDS: ALPRAZolam 0.25 MG TAB PO PRN ×2 (01:03→22:01)
[2016-05-08 05:31] LABS: Glucose,Whole Blood 155 mg/dL (75-99)
[2016-05-08] MEDS: NITROGLYCERIN OINT 1 INCH/GM PACKET TOPICAL SCH ×4 (06:34→23:13)
[2016-05-08] MEDS: INSULIN LISPRO (humaLOG) 300 UNIT/3 ML VIAL SQ SCH ×4 (06:39→22:02)
[2016-05-08 06:54] LABS: Basophils % (A) 0 %; CH 28.7; CHCM 31.9; Eosinophils # (A) 0.1 k/uL (0-0.7); Eosinophils % (A) 1 %; HDW 3.37; HGB 10.1 gm/dL (13.0-17.5); Hypochromasia Slight; Luc # (Auto) 0.14; Luc % (Auto) 1; Lymphocytes # (A) 1.2 k/uL (1.0-4.8); Lymphocytes % (A) 10 %; MCH 28.7 pg (25.0-35.0); MCHC 31.7 g/dL (31.0-37.0); MCV 90.6 fL (80.0-100.0); Mean Platelet Volume 8.5; Monocytes # (A) 0.5 k/uL (0-1.0); Monocytes % (A) 4 %; Neutrophils # (A) 10.5 k/uL (1.3-7.7); Neutrophils % (A) 84 %; RBC 3.53 m/uL (4.30-5.90); RDW 14.6 % (11.5-15.5); WBC 12.5 k/uL (3.8-10.6); WBC (Perox) 13.31
[2016-05-08 07:15] LABS: Bilirubin, Delta 0.5 mg/dL (0.0-0.2); Calcium 8.3 mg/dL (8.4-10.2); Magnesium 1.6 mg/dL (1.6-2.3); Potassium 3.8 mmol/L (3.5-5.1); Total Bilirubin 0.5 mg/dL (0.2-1.3); Total Protein 5.7 g/dL (6.3-8.2)
[2016-05-08] MEDS: IPRATROPIUM-ALBUTEROL 3 ML NEB INHALATION SCH ×4 (08:12→19:55)
[2016-05-08] MEDS: INSULIN GLARGINE 100 UNIT/ML 10 ML VIAL SQ SCH ×2 (08:35→22:01)
[2016-05-08] MEDS: ASPIRIN 325 MG TAB PO SCH (08:35)
[2016-05-08] MEDS: FUROSEMIDE 10 MG/ML 10 ML VIAL IV SCH ×2 (08:35→22:01)
[2016-05-08] MEDS: METOPROLOL TARTRATE 12.5 MG TAB PO SCH ×2 (08:36→22:02)
--- NOTE | 2016-05-08 09:50 | P.PN ---
Subjective Patient is seen in follow-up for acute kidney injury. Unclear as to what his baseline renal function is. Creatinine was 2.42 on admission yesterday and is relatively stable at 2.35 today. Patient presented with generalized weakness and dyspnea. He does have systolic CHF with ejection fraction of 20-25% with moderate mitral regurgitation. Also has a history of urinary retention for which he has a Liang catheter in place. He is nonoliguric. Currently maintained on Lasix 60 mg IV twice daily. Dyspnea is improved. No vomiting or diarrhea. Appetite is good. Vital signs are stable. General: The patient appeared well nourished and normally developed. HEENT: Head exam is unremarkable. Neck is without jugular venous distension. LUNGS: Lungs are clear to auscultation and percussion. Breath sounds decreased. HEART: Rate and Rhythm are regular. First and second heart sounds normal. No murmurs, rubs or gallops. ABDOMEN: Abdominal exam reveals normal bowel sounds. Non-tender and non- distended. No evidence of peritonitis. EXTREMITITES: No clubbing, cyanosis, or edema. Objective - Vital Signs Vital signs: Vital Signs Temp 96.3 F L 05/08/16 08:00 Pulse 92 05/08/16 08:25 Resp 22 05/08/16 04:00 BP 118/58 05/08/16 08:00 Pulse Ox 95 05/08/16 08:14 Intake & Output 05/07/16 05/08/16 05/08/16 18:59 06:59 18:59 Intake Total 1003.200 Output Total 800 1725 Balance 203.200 -1725 Weight 92.5 kg 91.6 kg Intake: IV 235.2 Heparin Sodium,Porcine/ 235.2 D5w Pmx 25,000 unit In Dextrose/Water 1 500ml. bag @ 10.549 UNITS/KG/HR 20 mls/hr IV .Q24H J[facility] Rx #:[id number] Intake, IV Titration 368.000 Amount Heparin Sodium,Porcine/ 368.000 D5w Pmx 25,000 unit In Dextrose/Water 1 500ml. bag @ 10.549 UNITS/KG/HR 20 mls/hr IV .Q24H J[facility]IER Rx #:[id number] Oral 400 Output: Urine 800 1725 Uretheral (Liang) 725 Other: Voiding Method Indwelling Catheter Indwelling Catheter # Bowel Movements 1 - Labs CBC & Chem 7: 05/08/16 06:26 05/08/16 06:26 Labs: Abnormal Lab Results - Last 24 Hours (Table) 05/07/16 05/07/16 05/07/16 Range/Units 11:59 13:32 16:51 WBC (3.8-10.6) k/uL RBC (4.30-5.90) m/uL Hgb (13.0-17.5) gm/dL Hct (39.0-53.0) % Neutrophils # (1.3-7.7) k/uL APTT 43.9 H (22.0-30.0) sec Carbon Dioxide (22-30) mmol/L BUN (9-20) mg/dL Creatinine (0.66-1.25) mg/dL Glucose (74-99) mg/dL POC Glucose (mg/dL) 228 H 214 H (75-99) mg/dL Calcium (8.4-10.2) mg/dL Delta Bilirubin (0.0-0.2) mg/dL AST (17-59) U/L ALT (21-72) U/L Total Protein (6.3-8.2) g/dL Albumin (3.5-5.0) g/dL 05/07/16 05/07/16 05/08/16 Range/Units 20:03 21:07 05:30 WBC (3.8-10.6) k/uL RBC (4.30-5.90) m/uL Hgb (13.0-17.5) gm/dL Hct (39.0-53.0) % Neutrophils # (1.3-7.7) k/uL APTT 54.8 H (22.0-30.0) sec Carbon Dioxide (22-30) mmol/L BUN (9-20) mg/dL Creatinine (0.66-1.25) mg/dL Glucose (74-99) mg/dL POC Glucose (mg/dL) 204 H 155 H (75-99) mg/dL Calcium (8.4-10.2) mg/dL Delta Bilirubin (0.0-0.2) mg/dL AST (17-59) U/L ALT (21-72) U/L Total Protein (6.3-8.2) g/dL Albumin (3.5-5.0) g/dL 05/08/16 05/08/16 05/08/16 Range/Units 06:26 06:26 06:26 WBC 12.5 H (3.8-10.6) k/uL RBC 3.53 L (4.30-5.90) m/uL Hgb 10.1 L (13.0-17.5) gm/dL Hct 32.0 L (39.0-53.0) % Neutrophils # 10.5 H (1.3-7.7) k/uL APTT 47.9 H (22.0-30.0) sec Carbon Dioxide 31 H (22-30) mmol/L BUN 74 H (9-20) mg/dL Creatinine 2.35 H (0.66-1.25) mg/dL Glucose 130 H (74-99) mg/dL POC Glucose (mg/dL) (75-99) mg/dL Calcium 8.3 L (8.4-10.2) mg/dL Delta Bilirubin 0.5 H (0.0-0.2) mg/dL AST 137 H (17-59) U/L ALT 212 H (21-72) U/L Total Protein 5.7 L (6.3-8.2) g/dL Albumin 3.0 L (3.5-5.0) g/dL Microbiology - Last 24 Hours (Table) 05/07/16 15:45 Urine Culture - Preliminary Urine,Catheterized Assessment and Plan Plan: Assessment: #1. Nonoliguric acute kidney injury secondary to cardiorenal syndrome and NSTEMI. Creatinine stable at 2.35 today. Unclear as to what his baseline renal function is. #2. History of urinary retention. Currently is a Liang catheter in place. #3. Urinary tract infection. #4. Systolic CHF with ejection fraction of 20-25% with moderate mitral regurgitation. #5. Elevated troponin. Questionable NSTEMI. #6. Insulin-dependent diabetes mellitus. #7. Rule out chronic kidney disease. Unclear as to what his baseline renal function is. He does have proteinuria noted on urinalysis which is likely due to underlying diabetic kidney disease. No hydronephrosis noted on renal ultrasound. Plan: Continue Lasix 60 mg IV twice daily. Follow-up urine culture. Maintain Liang catheter. Avoid nephrotoxic agents and hypotensive episodes. Repeat electrolytes in the morning.
[2016-05-08 12:56] LABS: Glucose,Whole Blood 140 mg/dL (75-99)
--- NOTE | 2016-05-08 14:29 | P.PN ---
Subjective Principal diagnosis: CHF This is a 75-year-old gentleman with history of coronary artery disease and prior bypass surgery several years ago, patient states approximately 3 years ago he underwent stent placement at [facility], he presented to [facility] with symptoms of it sinus infection as well as UTI. According to the patient he states that he was in [facility] a couple of weeks ago.sPatient states she's been feeling extremely weak at home, has not been eating for the past couple of days. He has had a productive cough of white and yellow sputum and has noticed himself to be quite wheezy. He denies having any chest pain. Along with other labs data, patient had a troponin drawn at [place] which came back to be abnormal, and for this reason the patient was transferred to [facility] for further evaluation. Troponin at [place] was 6.5. BNP level 3270. BUN 58 , creatinine 2.7, sodium 137, potassium 4.1. WBC 12.8, hemoglobin 11.1, platelet count 213. EKG on arrival there showed a normal sinus rhythm with incomplete left bundle branch block pattern and nonspecific inferior lateral ST- T wave changes. EKG on arrival here showed normal sinus rhythm and incomplete left bundle branch block pattern and minimal inferior lateral ST-T wave changes. Lab data on arrival here, hemoglobin 10.0, potassium 4.8, BUN 62, creatinine 2.4. AST 233, ALT 227, mag level I.5, BNP level 19,400, troponin 4.4 , 3.3, 2.7. Positive UTI. Echocardiogram with Doppler study was performed here which revealed an ejection fraction of 20-25% with severe global hypokinesia. Patient recently had an echocardiogram with Doppler study performed at [facility] which revealed an ejection fraction of 40 -45%. Patient continues to put out good urine, weight today is down 1 kg.creatinine 2.3 today. Objective - Vital Signs Vital signs: Vital Signs Temp 96.3 F L 05/08/16 08:00 Pulse 83 05/08/16 12:00 Resp 22 05/08/16 04:00 BP 119/58 05/08/16 12:00 Pulse Ox 99 05/08/16 12:00 Intake & Output 05/07/16 05/08/16 05/08/16 18:59 06:59 18:59 Intake Total 1003.200 Output Total 800 1725 Balance 203.200 -1725 Weight 92.5 kg 91.6 kg Intake: IV 235.2 Heparin Sodium,Porcine/ 235.2 D5w Pmx 25,000 unit In Dextrose/Water 1 500ml. bag @ 10.549 UNITS/KG/HR 20 mls/hr IV .Q24H JAVIER Rx #:[id number] Intake, IV Titration 368.000 Amount Heparin Sodium,Porcine/ 368.000 D5w Pmx 25,000 unit In Dextrose/Water 1 500ml. bag @ 10.549 UNITS/KG/HR 20 mls/hr IV .Q24H JAVIER Rx #:[id number] Oral 400 Output: Urine 800 1725 Uretheral (Liang) 725 Other: Voiding Method Indwelling Catheter Indwelling Catheter Indwelling Catheter # Bowel Movements 1 - Exam PHYSICAL EXAMINATION: HEENT: Head is atraumatic, normocephalic. Pupils equal, round. Neck is supple. There is elevated jugular venous pressure. HEART EXAMINATION: S1 and S2 1 systolic murmur is heard. CHEST EXAMINATION: Lungs reveal scattered coarse wheezes with diminished air entry to bilateral bases. ABDOMEN: Soft, obese, nontender. Bowel sounds are heard. No organomegaly noted. EXTREMITIES: 2+ peripheral pulses with trace evidence of peripheral edema and no calf tenderness noted. NEUROLOGIC patient is awake, alert and oriented -3. - Labs CBC & Chem 7: 05/08/16 06:26 05/08/16 06:26 Labs: Abnormal Lab Results - Last 24 Hours (Table) 05/07/16 05/07/16 05/07/16 Range/Units 16:51 20:03 21:07 WBC (3.8-10.6) k/uL RBC (4.30-5.90) m/uL Hgb (13.0-17.5) gm/dL Hct (39.0-53.0) % Neutrophils # (1.3-7.7) k/uL APTT 54.8 H (22.0-30.0) sec Carbon Dioxide (22-30) mmol/L BUN (9-20) mg/dL Creatinine (0.66-1.25) mg/dL Glucose (74-99) mg/dL POC Glucose (mg/dL) 214 H 204 H (75-99) mg/dL Calcium (8.4-10.2) mg/dL Delta Bilirubin (0.0-0.2) mg/dL AST (17-59) U/L ALT (21-72) U/L Total Protein (6.3-8.2) g/dL Albumin (3.5-5.0) g/dL 05/08/16 05/08/16 05/08/16 Range/Units 05:30 06:26 06:26 WBC 12.5 H (3.8-10.6) k/uL RBC 3.53 L (4.30-5.90) m/uL Hgb 10.1 L (13.0-17.5) gm/dL Hct 32.0 L (39.0-53.0) % Neutrophils # 10.5 H (1.3-7.7) k/uL APTT (22.0-30.0) sec Carbon Dioxide 31 H (22-30) mmol/L BUN 74 H (9-20) mg/dL Creatinine 2.35 H (0.66-1.25) mg/dL Glucose 130 H (74-99) mg/dL POC Glucose (mg/dL) 155 H (75-99) mg/dL Calcium 8.3 L (8.4-10.2) mg/dL Delta Bilirubin 0.5 H (0.0-0.2) mg/dL AST 137 H (17-59) U/L ALT 212 H (21-72) U/L Total Protein 5.7 L (6.3-8.2) g/dL Albumin 3.0 L (3.5-5.0) g/dL 05/08/16 05/08/16 Range/Units 06:26 12:54 WBC (3.8-10.6) k/uL RBC (4.30-5.90) m/uL Hgb (13.0-17.5) gm/dL Hct (39.0-53.0) % Neutrophils # (1.3-7.7) k/uL APTT 47.9 H (22.0-30.0) sec Carbon Dioxide (22-30) mmol/L BUN (9-20) mg/dL Creatinine (0.66-1.25) mg/dL Glucose (74-99) mg/dL POC Glucose (mg/dL) 140 H (75-99) mg/dL Calcium (8.4-10.2) mg/dL Delta Bilirubin (0.0-0.2) mg/dL AST (17-59) U/L ALT (21-72) U/L Total Protein (6.3-8.2) g/dL Albumin (3.5-5.0) g/dL Microbiology - Last 24 Hours (Table) 05/07/16 15:45 Urine Culture - Preliminary Urine,Catheterized Assessment and Plan Plan: Assessment and plan #1 systolic congestive heart failure acute on chronic Currently on IV Lasix. #2 troponin abnormality suggestive of non-Q-wave myocardial infarction. EKG shows normal sinus rhythm with nonspecific inferior lateral ST-T wave changes. #3 known history of coronary artery disease with prior bypass surgery, patient also states he underwent stent placement approximately 3 years ago at [facility]. #4 hypertension Number 5 diabetes #6 hyperlipidemia #7 history of nicotine dependence #8 sinus infection #9 UTI #10 abnormal LFTs, likely secondary to liver congestion #11 acute on chronic renal insufficiency Plan Cardiology's perspective, we'll continue current dose of IV Lasix. Once the patient is stable from a heart failure and renal perspective, he will need to undergo cardiac catheterization. Explained to the patient in detail. DNP note has been reviewed, I agree with a documented findings and plan of care. Patient was seen and examined.
--- NOTE | 2016-05-08 16:16 | P.CNPUL ---
History of Present Illness Consult date: 05/08/16 Requesting physician: Ishmael Fields Reason for consult: dyspnea, abnormal CXR/CT Chief complaint: Shortness of breath, sinus congestion History of present illness: This is a very pleasant 75-year-old gentleman who has a past medical history of diabetes mellitus, hypertension, hyperlipidemia, coronary artery disease with previous coronary artery bypass grafting, hypothyroidism, former smoker, chronic kidney disease, GERD. He presented here on 05/06/2016 from [facility] after initially complaining of a sinus infection and suspected urinary tract infection. However upon initial workup they found a troponin of 6.5 and called him and non-STEMI and transferred him here for the same. The patient is seen in consultation today on the selective care unit. He is awake and alert in no acute distress. He currently denies any chest pain, palpitations lightheadedness or dizziness. He still complains of some sinus pressure and congestion which originally sent him to the hospital. He had been treated with Claritin and Ceftin. No significant shortness of breath, cough or congestion. His chest x-ray does reveal evidence of pulmonary interstitial edema and pleural effusions more consistent with congestive heart failure. A two-dimensional echocardiogram reveals severely impaired left ventricular systolic function with estimated ejection fraction 20-25%. There is severe global hypokinesis noted as well. Cardiology is planning cardiac catheterization once his congestive heart failure and renal status has improved. He is still requiring 5 L/m per nasal cannula to maintain O2 saturations in the 90s. He has been afebrile. Hemodynamically stable. Review of Systems 14 point review of system was conducted all negative other than as mentioned in HPI. Past Medical History Past Medical History: Diabetes Mellitus, GERD/Reflux, Hyperlipidemia, Hypertension, Myocardial Infarction ([place]), Prostate Disorder, Thyroid Disorder Additional Past Medical History / Comment(s): GERD, kidney stones,shingles few years ago, sinus infection, stated had uti and blood in urine idc placed when at [facility] 02-18-17 till 04-25-16.ckd was previous;y charted but when asked if had any kidney dz pt stated no. Last Myocardial Infarction Date:: 1993 History of Any Multi-Drug Resistant Organisms: None Reported Past Surgical History: Appendectomy, Cholecystectomy, Coronary Bypass/CABG, Heart Catheterization With Stent, Tonsillectomy Additional Past Surgical History / Comment(s): ltAnkle orif-plate in place,rt hip surgery d/t broken hip pt stated not sure what they did.quad bypass 1993- ( at [facility]). few years after cabg had heart cath with stents(at [facility]) Past Anesthesia/Blood Transfusion Reactions: No Reported Reaction Date of Last Stent Placement:: unsure of date Past Psychological History: No Psychological Hx Reported Smoking Status: Former smoker Past Alcohol Use History: None Reported Additional Past Alcohol Use History / Comment(s): started smoking at age 17, smoked 1ppd, cut down to 3 cig per day recently then quit 3 days ago Past Drug Use History: None Reported - Past Family History Father Family Medical History: No Reported History Mother Family Medical History: No Reported History Medications and Allergies Home Medications Medication Instructions Recorded Confirmed Type Aspirin EC [Ecotrin Low Dose] 81 mg PO DAILY 05/06/16 05/06/16 History Cefuroxime Axetil [Ceftin] 500 mg PO BID 05/06/16 05/06/16 History Furosemide [Lasix] 20 mg PO DAILY 05/06/16 05/06/16 History Insulin Glargine [Lantus] 15 unit SQ HS 05/06/16 05/06/16 History Insulin Glargine [Lantus] 70 unit SQ QA 05/06/16 05/06/16 History Lisinopril [Zestril] 10 mg PO DAILY 05/06/16 05/06/16 History Loratadine [Claritin] 10 mg PO DAILY 05/06/16 05/06/16 History Lovastatin [Mevacor] 40 mg PO HS 05/06/16 05/06/16 History Omeprazole [PriLOSEC] 20 mg PO DAILY 05/06/16 05/06/16 History Ondansetron [Zofran ODT] 4 mg PO Q12HR PRN 05/06/16 05/06/16 History Tamsulosin HCl [Flomax] 0.4 mg PO DAILY 05/06/16 05/06/16 History Allergies Allergy/AdvReac Type Severity Reaction Status Date / Time codeine Allergy Anaphylaxis Verified 05/06/16 17:07 Physical Exam Vitals: Vital Signs Temp Pulse Pulse Resp BP Pulse Ox 05/08/16 12:00 83 119/58 99 05/08/16 11:56 88 05/08/16 11:47 88 05/08/16 08:25 92 05/08/16 08:14 92 95 05/08/16 08:00 96.3 F L 100 118/58 90 L 05/08/16 04:00 97.6 F 86 22 127/60 95 05/08/16 00:00 97 F L 95 22 117/57 94 L 05/07/16 22:54 89 05/07/16 22:42 84 05/07/16 20:02 84 05/07/16 20:00 97 F L 86 22 100/53 93 L 05/07/16 19:51 83 95 Intake and Output 05/08/16 05/08/16 05/08/16 06:59 14:59 22:59 Output Total 1025 Balance -1025 Output: Urine 1025 Uretheral (Liang) 375 Other: Voiding Method Indwelling Catheter Indwelling Catheter Weight 91.6 kg GENERAL EXAM: Alert, in no acute distress.. HEAD: Normocephalic. EYES: Normal reaction of pupils, equal size. NOSE: Clear with pink turbinates. THROAT: No erythema or exudates. NECK: No masses, no significant JVD. CHEST: No chest wall deformity. LUNGS: Equal air entry with crackles in the posterior bases. Diminished.. CVS: S1 and S2 normal with an audible murmur, regular rhythm. ABDOMEN: Obese, soft, normal bowel sounds, no guarding or rigidity. Extremities: There is 1-2+ lower extremity peripheral edema. No clubbing, no cyanosis. Peripheral pulses are intact. Results - Laboratory Findings CBC and BMP: 05/08/16 06:26 05/08/16 06:26 PT/INR, D-dimer PT 12.6 sec (9.0-12.0) H 05/06/16 17:10 INR 1.3 (<1.1) 05/06/16 17:10 Abnormal lab findings: Abnormal Labs 05/06/16 05/06/16 05/06/16 21:08 22:26 22:26 WBC RBC Hgb Hct Neutrophils # APTT Carbon Dioxide BUN Creatinine Glucose POC Glucose (mg/dL) 412 H Hemoglobin A1c 8.2 H Calcium Delta Bilirubin AST ALT CK-MB (CK-2) 5.1 H* Troponin I 3.320 H* Total Protein Albumin LDL Cholesterol, Calc HDL Cholesterol 05/06/16 05/07/16 05/07/16 22:26 05:53 05:57 WBC RBC Hgb Hct Neutrophils # APTT 30.4 H Carbon Dioxide BUN Creatinine Glucose POC Glucose (mg/dL) Hemoglobin A1c Calcium Delta Bilirubin AST ALT CK-MB (CK-2) 4.9 H* Troponin I 2.710 H* Total Protein Albumin LDL Cholesterol, Calc 123 H HDL Cholesterol 36 L 05/07/16 05/07/16 05/07/16 05:57 06:08 11:59 WBC RBC Hgb Hct Neutrophils # APTT 44.3 H Carbon Dioxide BUN Creatinine Glucose POC Glucose (mg/dL) 405 H 228 H Hemoglobin A1c Calcium Delta Bilirubin AST ALT CK-MB (CK-2) Troponin I Total Protein Albumin LDL Cholesterol, Calc HDL Cholesterol 05/07/16 05/07/16 05/07/16 13:32 16:51 20:03 WBC RBC Hgb Hct Neutrophils # APTT 43.9 H 54.8 H Carbon Dioxide BUN Creatinine Glucose POC Glucose (mg/dL) 214 H Hemoglobin A1c Calcium Delta Bilirubin AST ALT CK-MB (CK-2) Troponin I Total Protein Albumin LDL Cholesterol, Calc HDL Cholesterol 05/07/16 05/08/16 05/08/16 21:07 05:30 06:26 WBC 12.5 H RBC 3.53 L Hgb 10.1 L Hct 32.0 L Neutrophils # 10.5 H APTT Carbon Dioxide BUN Creatinine Glucose POC Glucose (mg/dL) 204 H 155 H Hemoglobin A1c Calcium Delta Bilirubin AST ALT CK-MB (CK-2) Troponin I Total Protein Albumin LDL Cholesterol, Calc HDL Cholesterol 05/08/16 05/08/16 05/08/16 06:26 06:26 12:54 WBC RBC Hgb Hct Neutrophils # APTT 47.9 H Carbon Dioxide 31 H BUN 74 H Creatinine 2.35 H Glucose 130 H POC Glucose (mg/dL) 140 H Hemoglobin A1c Calcium 8.3 L Delta Bilirubin 0.5 H AST 137 H ALT 212 H CK-MB (CK-2) Troponin I Total Protein 5.7 L Albumin 3.0 L LDL Cholesterol, Calc HDL Cholesterol - Diagnostic Findings Chest x-ray: image reviewed Assessment and Plan Plan: Impression: #1 Acute exacerbation of systolic congestive heart failure with severely impaired left ventricular systolic function estimated ejection fraction 2025% and global hypokinesia. #2 Acute hypoxic respiratory failure secondary to above. #3 Acute non-ST segment elevation myocardial infarction. #4 History of coronary artery disease with previous coronary artery bypass grafting and subsequent stent placement. #5 Chronic nicotine addiction. #6 Diabetes mellitus. #7 Hyperlipidemia. #8 Hypertension. #9 Hypothyroidism. #10 Gastroesophageal reflux disease. #11 History of urinary retention requiring indwelling Liang catheter. #12 Acute on chronic kidney disease. Plan: The patient was seen and evaluated by Dr. Avelar. His chest x-ray and labs were reviewed. Continue with bronchodilators 4 times a day and when necessary. We'll add Pulmicort inhalations twice a day. We'll initiate IV Solu-Medrol. The patient is educated regarding importance of complete smoking cessation. We' ll offer NicoDerm patch. We'll continue to diurese the patient, currently on Lasix 60 mg IV push every 12 hours.. Cardiology and nephrology is on the case as well. He remains on a heparin drip and once stabilized the plan is for cardiac catheterization.
[2016-05-08 17:19] LABS: Glucose,Whole Blood 127 mg/dL (75-99)
[2016-05-08] MEDS: HEPARIN SODIUM,PORCINE/D5W PMX 25,000 UNIT in DEXTROSE/WATER 1 500ML.BAG IV SCH (17:27)
[2016-05-08] MEDS: methylPREDNISolone SOD SUCCI 40 MG/ML 1 ML VIAL IV SCH ×2 (17:28→23:15)
[2016-05-08] MEDS: BUDESONIDE 1 MG/2 ML NEBU INHALATION SCH (19:55)
[2016-05-08 19:58] LABS: Glucose,Whole Blood 211 mg/dL (75-99)
--- NOTE | 2016-05-08 23:50 | PN ---
DATE OF SERVICE: 05/08/2016 This 75-year-old gentleman who was admitted with CHF, acute exacerbation, was on IV Lasix. His troponin levels were also elevated, indicating acute arg-JU-tskgheo-elevation myocardial infarction. Cardiology is following the patient closely also. The troponins are elevated up to 3.320. The creatinine is 2.35. Patient is being closely monitored at this time. Cardiac catheterization is tentatively planned. The patient had Liang catheter insertion earlier. Past medical history reviewed. REVIEW OF SYSTEMS: CARDIOVASCULAR SYSTEM: As mentioned earlier. RESPIRATORY SYSTEM: As mentioned earlier. GI: No nausea, vomiting. : No dysuria, retention. Current medications are reviewed and include: 1. DuoNeb q.i.d. and p.r.n. 2. Xanax 0.25 t.i.d. 3. Aspirin 325 mg daily. 4. Pulmicort 1 mg b.i.d. 5. Lasix 60 mg IV b.i.d. 6. Lantus. 7. Melatonin. 8. Solu-Medrol. 9. Lopressor. 10. Nitrostat. 11. Nitro-Bid ointment. PHYSICAL EXAM: Patient is alert and oriented x3. Pulse 83, blood pressure 119/58, respiration 20, temperature normal, pulse ox 99% on 5 L. HEENT: Conjunctivae normal. NECK: No jugular venous distention. CARDIOVASCULAR SYSTEM: S1, S2 muffled. RESPIRATORY SYSTEM: Breath sounds diminished at the bases. Bilateral scattered rhonchi and crackles. ABDOMEN: Soft obese, nontender. LEGS: Minimal bilateral pedal edema. NERVOUS SYSTEM: Higher functions as mentioned earlier. Moves all 4 limbs. No focal motor or sensory deficit. LYMPHATICS: No lymph node palpable in neck, axillae or groin. SKIN: No ulcer, rash, bleeding. LABS: WBC 12.6, hemoglobin 10.1. Creatinine is 2.35. AST, ALT noted. ASSESSMENT: 1. Congestive heart failure, acute exacerbation, with acute on chronic systolic dysfunction, ejection fraction 25%, with acute hypoxic respiratory failure. 2. Acute jwk-LA-ngtgalw-elevation myocardial infarction with troponin 3.320. 3. Acute on chronic kidney disease, stage III. 4. Acute urinary tract infection. 5. Diabetes mellitus, type 2. 6. Hypertension. 7. Coronary artery disease. 8. Gait dysfunction. 9. Chronic obstructive pulmonary disease. 10. History of nicotine dependence. 11. Hyperlipidemia. 12. Diabetes mellitus, type 2, uncontrolled. 13. Increased white count. 14. Anemia. 15. Gastroesophageal reflux disease. 16. NO CODE, NO CPR, NO VENT. RECOMMENDATIONS AND DISCUSSION: In this 75-year-old gentleman who presented with multiple complex medical issues, we will monitor the patient closely, continue the current medications, optimize the diuretic therapy as well as bronchodilators and monitor creatinine closely. I would also recommend nephrology consultation. Closely monitor with Cardiology as well as Pulmonology. Guarded prognosis because of multiple complex medical issues. Avoid nephrotoxic medications at this time. Further recommendations to follow. Continue with Flomax at this time.
[2016-05-09] MEDS: IPRATROPIUM-ALBUTEROL 3 ML NEB INHALATION SCH ×4 (06:00→20:24)
[2016-05-09 06:26] LABS: Glucose,Whole Blood 272 mg/dL (75-99)
[2016-05-09] MEDS: NITROGLYCERIN OINT 1 INCH/GM PACKET TOPICAL SCH ×4 (06:37→22:43)
[2016-05-09 06:45] LABS: Basophils % (A) 0 %; CH 28.7; Eosinophils % (A) 0 %; HCT 32.3 % (39.0-53.0); HDW 3.49; HGB 10.3 gm/dL (13.0-17.5); Hypochromasia Slight; Luc # (Auto) 0.13; Luc % (Auto) 2; Lymphocytes # (A) 0.7 k/uL (1.0-4.8); Lymphocytes % (A) 12 %; MCH 28.9 pg (25.0-35.0); MCV 90.4 fL (80.0-100.0); Mean Platelet Volume 8.6; Monocytes # (A) 0.2 k/uL (0-1.0); Monocytes % (A) 3 %; Neutrophils # (A) 4.8 k/uL (1.3-7.7); Neutrophils % (A) 83 %; Poikilocytosis Slight; RBC 3.57 m/uL (4.30-5.90); RDW 14.7 % (11.5-15.5); WBC 5.8 k/uL (3.8-10.6); WBC (Perox) 6.19
[2016-05-09 06:52] LABS: Calcium 7.9 mg/dL (8.4-10.2); Potassium 4.3 mmol/L (3.5-5.1); Total Bilirubin 0.6 mg/dL (0.2-1.3); Total Protein 5.5 g/dL (6.3-8.2)
[2016-05-09] MEDS: PANTOPRAZOLE 40 MG TABLET PO SCH (06:52)
[2016-05-09] MEDS: INSULIN LISPRO (humaLOG) 300 UNIT/3 ML VIAL SQ SCH ×4 (06:52→22:00)
[2016-05-09] MEDS: FUROSEMIDE 10 MG/ML 10 ML VIAL IV SCH ×2 (09:04→20:50)
[2016-05-09] MEDS: methylPREDNISolone SOD SUCCI 40 MG/ML 1 ML VIAL IV SCH (09:05)
[2016-05-09] MEDS: METOPROLOL TARTRATE 12.5 MG TAB PO SCH ×2 (09:06→20:50)
--- NOTE | 2016-05-09 09:06 | XR ---
EXAMINATION TYPE: XR chest 1V portable DATE OF EXAM: 05/09/2016 8:50 AM HISTORY: Difficulty breathing. REFERENCE: Previous study dated 05/06/2016. FINDINGS: There has been a midline sternotomy. The lungs are overinflated. The heart is mildly enlarged. There are small, bilateral effusions, these have worsened from the previous study. Pulmonary vasculature has improved. There is less interstitia l change. IMPRESSION: 1. IMPROVING CHANGES OF CONGESTIVE HEART FAILURE. 2. COPD. 3. MILD CARDIOMEGALY. 4. SMALL, BILATERAL EFFUSIONS.
[2016-05-09] MEDS: ASPIRIN 325 MG TAB PO SCH (09:07)
[2016-05-09] MEDS: TAMSULOSIN 0.4 MG CAP.ER.24H PO SCH (09:07)
[2016-05-09] MEDS: INSULIN GLARGINE 100 UNIT/ML 10 ML VIAL SQ SCH (09:11)
--- NOTE | 2016-05-09 10:11 | P.PN ---
Subjective Patient is seen in follow-up for acute kidney injury. Unclear as to what his baseline renal function is. Creatinine was 2.42 on admission yesterday and is gradually improving with creatinine down to 1.9 today. Patient presented with generalized weakness and dyspnea. He does have systolic CHF with ejection fraction of 20-25% with moderate mitral regurgitation. Also has a history of urinary retention for which he has a Liang catheter in place. He is nonoliguric. Currently maintained on Lasix 60 mg IV twice daily. Dyspnea is improved. No vomiting or diarrhea. Appetite is good. Vital signs are stable. General: The patient appeared well nourished and normally developed. HEENT: Head exam is unremarkable. Neck is without jugular venous distension. LUNGS: Lungs are clear to auscultation and percussion. Breath sounds decreased. HEART: Rate and Rhythm are regular. First and second heart sounds normal. No murmurs, rubs or gallops. ABDOMEN: Abdominal exam reveals normal bowel sounds. Non-tender and non- distended. No evidence of peritonitis. EXTREMITITES: No clubbing, cyanosis, or edema. Objective - Vital Signs Vital signs: Vital Signs Temp 96.8 F L 05/09/16 08:00 Pulse 77 05/09/16 08:00 Resp 18 05/09/16 08:00 BP 100/54 05/09/16 08:00 Pulse Ox 94 L 05/09/16 08:00 Intake & Output 05/08/16 05/09/16 05/09/16 18:59 06:59 18:59 Intake Total 620 786.516 Output Total 2200 2150 Balance -1580 -1363.484 Weight 90.8 kg Intake: IV 32 0.9 @10 mls/hr 10 Heparin Sodium,Porcine/ 22 D5w Pmx 25,000 unit In Dextrose/Water 1 500ml. bag @ 10.549 UNITS/KG/HR 20 mls/hr IV .Q24H JAVIER Rx #:[id number] Intake, IV Titration 254.516 Amount Heparin Sodium,Porcine/ 254.516 D5w Pmx 25,000 unit In Dextrose/Water 1 500ml. bag @ 10.549 UNITS/KG/HR 20 mls/hr IV .Q24H JAVIER Rx #:[id number] Oral 620 500 Output: Urine 2200 2150 Uretheral (Liang) 925 Other: Voiding Method Indwelling Catheter Indwelling Catheter Indwelling Catheter - Labs CBC & Chem 7: 05/09/16 06:12 05/09/16 06:12 Labs: Abnormal Lab Results - Last 24 Hours (Table) 05/08/16 05/08/16 05/08/16 Range/Units 12:54 17:08 19:56 RBC (4.30-5.90) m/uL Hgb (13.0-17.5) gm/dL Hct (39.0-53.0) % Lymphocytes # (1.0-4.8) k/uL APTT (22.0-30.0) sec Chloride (98-107) mmol/L Carbon Dioxide (22-30) mmol/L BUN (9-20) mg/dL Creatinine (0.66-1.25) mg/dL Glucose (74-99) mg/dL POC Glucose (mg/dL) 140 H 127 H 211 H (75-99) mg/dL Calcium (8.4-10.2) mg/dL AST (17-59) U/L ALT (21-72) U/L Total Protein (6.3-8.2) g/dL Albumin (3.5-5.0) g/dL 05/09/16 05/09/16 05/09/16 Range/Units 06:12 06:12 06:12 RBC 3.57 L (4.30-5.90) m/uL Hgb 10.3 L (13.0-17.5) gm/dL Hct 32.3 L (39.0-53.0) % Lymphocytes # 0.7 L (1.0-4.8) k/uL APTT 50.8 H (22.0-30.0) sec Chloride 96 L (98-107) mmol/L Carbon Dioxide 35 H (22-30) mmol/L BUN 63 H (9-20) mg/dL Creatinine 1.90 H (0.66-1.25) mg/dL Glucose 259 H (74-99) mg/dL POC Glucose (mg/dL) (75-99) mg/dL Calcium 7.9 L (8.4-10.2) mg/dL AST 134 H (17-59) U/L ALT 236 H (21-72) U/L Total Protein 5.5 L (6.3-8.2) g/dL Albumin 3.0 L (3.5-5.0) g/dL 05/09/16 Range/Units 06:24 RBC (4.30-5.90) m/uL Hgb (13.0-17.5) gm/dL Hct (39.0-53.0) % Lymphocytes # (1.0-4.8) k/uL APTT (22.0-30.0) sec Chloride (98-107) mmol/L Carbon Dioxide (22-30) mmol/L BUN (9-20) mg/dL Creatinine (0.66-1.25) mg/dL Glucose (74-99) mg/dL POC Glucose (mg/dL) 272 H (75-99) mg/dL Calcium (8.4-10.2) mg/dL AST (17-59) U/L ALT (21-72) U/L Total Protein (6.3-8.2) g/dL Albumin (3.5-5.0) g/dL Microbiology - Last 24 Hours (Table) 05/07/16 15:45 Urine Culture - Final Urine,Catheterized Assessment and Plan Plan: Assessment: #1. Nonoliguric acute kidney injury secondary to cardiorenal syndrome and NSTEMI. Creatinine improved to 1.9 today. Unclear as to what his baseline renal function is. #2. History of urinary retention. Currently is a Liang catheter in place. #3. Urinary tract infection. #4. Systolic CHF with ejection fraction of 20-25% with moderate mitral regurgitation. #5. Elevated troponin. Questionable NSTEMI. #6. Insulin-dependent diabetes mellitus. #7. Rule out chronic kidney disease. Unclear as to what his baseline renal function is. He does have proteinuria noted on urinalysis which is likely due to underlying diabetic kidney disease. No hydronephrosis noted on renal ultrasound. Plan: Continue Lasix 60 mg IV twice daily. Follow-up urine culture. Maintain Liang catheter. Avoid nephrotoxic agents and hypotensive episodes. Repeat electrolytes in the morning.
[2016-05-09] MEDS: BUDESONIDE 1 MG/2 ML NEBU INHALATION SCH ×2 (11:44→20:24)
[2016-05-09 11:59] LABS: Glucose,Whole Blood 506 mg/dL (75-99)
--- NOTE | 2016-05-09 13:36 | P.PN ---
Subjective Principal diagnosis: Acute congestive heart failure his is a very pleasant 75-year-old gentleman who has a past medical history of diabetes mellitus, hypertension, hyperlipidemia, coronary artery disease with previous coronary artery bypass grafting, hypothyroidism, former smoker, chronic kidney disease, GERD. He presented here on 05/06/2016 from [facility] after initially complaining of a sinus infection and suspected urinary tract infection. However upon initial workup they found a troponin of 6.5 and called him and non-STEMI and transferred him here for the same. The patient is seen in consultation today on the selective care unit. He is awake and alert in no acute distress. He currently denies any chest pain, palpitations lightheadedness or dizziness. He still complains of some sinus pressure and congestion which originally sent him to the hospital. He had been treated with Claritin and Ceftin. No significant shortness of breath, cough or congestion. His chest x-ray does reveal evidence of pulmonary interstitial edema and pleural effusions more consistent with congestive heart failure. A two-dimensional echocardiogram reveals severely impaired left ventricular systolic function with estimated ejection fraction 20-25%. There is severe global hypokinesis noted as well. Cardiology is planning cardiac catheterization once his congestive heart failure and renal status has improved. He is still requiring 5 L/m per nasal cannula to maintain O2 saturations in the 90s. He has been afebrile. Hemodynamically stable. Patient was reevaluated today on 05/09/2016, he is feeling better, breathing a lot easier. Hardly any shortness of breath at rest, no cough, no wheezing, no chest pain. His labs were reviewed today, hemoglobin is 10.3, PTT is 51, BUN is 63 and creatinine is 1.90. Blood sugar seems to be quite elevated today and that being addressed by the admitting physician. Objective - Vital Signs Vital signs: Vital Signs Temp 96.8 F L 05/09/16 08:00 Pulse 80 05/09/16 12:03 Resp 18 05/09/16 08:00 BP 100/54 05/09/16 08:00 Pulse Ox 94 L 05/09/16 08:00 Intake & Output 05/08/16 05/09/16 05/09/16 18:59 06:59 18:59 Intake Total 620 786.516 118 Output Total 2200 2150 Balance -1580 -1363.484 118 Weight 90.8 kg Intake: IV 32 0.9 @10 mls/hr 10 Heparin Sodium,Porcine/ 22 D5w Pmx 25,000 unit In Dextrose/Water 1 500ml. bag @ 10.549 UNITS/KG/HR 20 mls/hr IV .Q24H [facility] Rx #:[id number] Intake, IV Titration 254.516 Amount Heparin Sodium,Porcine/ 254.516 D5w Pmx 25,000 unit In Dextrose/Water 1 500ml. bag @ 10.549 UNITS/KG/HR 20 mls/hr IV .Q24H [facility] Rx #:[id number] Oral 620 500 118 Output: Urine 2200 2150 Uretheral (Liang) 925 Other: Voiding Method Indwelling Catheter Indwelling Catheter Indwelling Catheter - Exam GENERAL EXAM: Alert, in no acute distress.. HEAD: Normocephalic. EYES: Normal reaction of pupils, equal size. NOSE: Clear with pink turbinates. THROAT: No erythema or exudates. NECK: No masses, no significant JVD. CHEST: No chest wall deformity. LUNGS: Equal air entry with crackles in the posterior bases. Diminished.. CVS: S1 and S2 normal with an audible murmur, regular rhythm. ABDOMEN: Obese, soft, normal bowel sounds, no guarding or rigidity. Extremities: There is 1-2+ lower extremity peripheral edema. No clubbing, no cyanosis. Peripheral pulses are intact. - Labs CBC & Chem 7: 05/09/16 06:12 05/09/16 06:12 Labs: Abnormal Lab Results - Last 24 Hours (Table) 05/08/16 05/08/16 05/09/16 Range/Units 17:08 19:56 06:12 RBC (4.30-5.90) m/uL Hgb (13.0-17.5) gm/dL Hct (39.0-53.0) % Lymphocytes # (1.0-4.8) k/uL APTT (22.0-30.0) sec Chloride 96 L (98-107) mmol/L Carbon Dioxide 35 H (22-30) mmol/L BUN 63 H (9-20) mg/dL Creatinine 1.90 H (0.66-1.25) mg/dL Glucose 259 H (74-99) mg/dL POC Glucose (mg/dL) 127 H 211 H (75-99) mg/dL Calcium 7.9 L (8.4-10.2) mg/dL AST 134 H (17-59) U/L ALT 236 H (21-72) U/L Total Protein 5.5 L (6.3-8.2) g/dL Albumin 3.0 L (3.5-5.0) g/dL 05/09/16 05/09/16 05/09/16 Range/Units 06:12 06:12 06:24 RBC 3.57 L (4.30-5.90) m/uL Hgb 10.3 L (13.0-17.5) gm/dL Hct 32.3 L (39.0-53.0) % Lymphocytes # 0.7 L (1.0-4.8) k/uL APTT 50.8 H (22.0-30.0) sec Chloride (98-107) mmol/L Carbon Dioxide (22-30) mmol/L BUN (9-20) mg/dL Creatinine (0.66-1.25) mg/dL Glucose (74-99) mg/dL POC Glucose (mg/dL) 272 H (75-99) mg/dL Calcium (8.4-10.2) mg/dL AST (17-59) U/L ALT (21-72) U/L Total Protein (6.3-8.2) g/dL Albumin (3.5-5.0) g/dL 05/09/16 Range/Units 11:56 RBC (4.30-5.90) m/uL Hgb (13.0-17.5) gm/dL Hct (39.0-53.0) % Lymphocytes # (1.0-4.8) k/uL APTT (22.0-30.0) sec Chloride (98-107) mmol/L Carbon Dioxide (22-30) mmol/L BUN (9-20) mg/dL Creatinine (0.66-1.25) mg/dL Glucose (74-99) mg/dL POC Glucose (mg/dL) 506 H (75-99) mg/dL Calcium (8.4-10.2) mg/dL AST (17-59) U/L ALT (21-72) U/L Total Protein (6.3-8.2) g/dL Albumin (3.5-5.0) g/dL Microbiology - Last 24 Hours (Table) 05/07/16 15:45 Urine Culture - Final Urine,Catheterized Assessment and Plan Plan: #1 Acute exacerbation of systolic congestive heart failure with severely impaired left ventricular systolic function estimated ejection fraction 2025% and global hypokinesia. #2 Acute hypoxic respiratory failure secondary to above. #3 Acute non-ST segment elevation myocardial infarction. #4 History of coronary artery disease with previous coronary artery bypass grafting and subsequent stent placement. #5 Chronic nicotine addiction. #6 Diabetes mellitus. #7 Hyperlipidemia. #8 Hypertension. #9 Hypothyroidism. #10 Gastroesophageal reflux disease. #11 History of urinary retention requiring indwelling Liang catheter. #12 Acute on chronic kidney disease. #13 strongly suspect chronic obstructive pulmonary disease related to his chronic tobacco dependence syndrome. Recommendation: Continue present treatment plan, including bronchodilators, diuretics, multiple cardiac meds as listed, and I will cut down on his IV Solu- Medrol. Time with Patient: Less than 30
[2016-05-09 14:05] LABS: Glucose,Whole Blood 408 mg/dL (75-99)
--- NOTE | 2016-05-09 14:28 | P.PN ---
Subjective Principal diagnosis: CHF This is a 75-year-old gentleman with history of coronary artery disease and prior bypass surgery several years ago, patient states approximately 3 years ago he underwent stent placement at [facility], he presented to [facility] with symptoms of it sinus infection as well as UTI. According to the patient he states that he was in [facility] a couple of weeks ago.sPatient states she's been feeling extremely weak at home, has not been eating for the past couple of days. He has had a productive cough of white and yellow sputum and has noticed himself to be quite wheezy. He denies having any chest pain. Along with other labs data, patient had a troponin drawn at [facility] which came back to be abnormal, and for this reason the patient was transferred to [facility] for further evaluation. Troponin at [facility] was 6.5. BNP level 3270. BUN 58 , creatinine 2.7, sodium 137, potassium 4.1. WBC 12.8, hemoglobin 11.1, platelet count 213. EKG on arrival there showed a normal sinus rhythm with incomplete left bundle branch block pattern and nonspecific inferior lateral ST- T wave changes. EKG on arrival here showed normal sinus rhythm and incomplete left bundle branch block pattern and minimal inferior lateral ST-T wave changes. Lab data on arrival here, hemoglobin 10.0, potassium 4.8, BUN 62, creatinine 2.4. AST 233, ALT 227, mag level I.5, BNP level 19,400, troponin 4.4 , 3.3, 2.7. Positive UTI. Echocardiogram with Doppler study was performed here which revealed an ejection fraction of 20-25% with severe global hypokinesia. Patient recently had an echocardiogram with Doppler study performed at [facility] which revealed an ejection fraction of 40 -45%. Patient continues to put out good urine, weight today is down 1 kg.creatinine 1.9 today. Objective - Vital Signs Vital signs: Vital Signs Temp 96.8 F L 05/09/16 08:00 Pulse 80 05/09/16 12:03 Resp 18 05/09/16 08:00 BP 100/54 05/09/16 08:00 Pulse Ox 94 L 05/09/16 08:00 Intake & Output 05/08/16 05/09/16 05/09/16 18:59 06:59 18:59 Intake Total 620 786.516 340 Output Total 2200 2150 Balance -1580 -1363.484 340 Weight 90.8 kg Intake: IV 32 0.9 @10 mls/hr 10 Heparin Sodium,Porcine/ 22 D5w Pmx 25,000 unit In Dextrose/Water 1 500ml. bag @ 10.549 UNITS/KG/HR 20 mls/hr IV .Q24H [facility] Rx #:[id number] Intake, IV Titration 254.516 Amount Heparin Sodium,Porcine/ 254.516 D5w Pmx 25,000 unit In Dextrose/Water 1 500ml. bag @ 10.549 UNITS/KG/HR 20 mls/hr IV .Q24H [facility] Rx #:[id number] Oral 620 500 340 Output: Urine 2200 2150 Uretheral (Liang) 925 Other: Voiding Method Indwelling Catheter Indwelling Catheter Indwelling Catheter - Exam PHYSICAL EXAMINATION: HEENT: Head is atraumatic, normocephalic. Pupils equal, round. Neck is supple. There is elevated jugular venous pressure. HEART EXAMINATION: S1 and S2 1 systolic murmur is heard. CHEST EXAMINATION: Lungs reveal scattered coarse wheezes with diminished air entry to bilateral bases. ABDOMEN: Soft, obese, nontender. Bowel sounds are heard. No organomegaly noted. EXTREMITIES: 2+ peripheral pulses with trace evidence of peripheral edema and no calf tenderness noted. NEUROLOGIC patient is awake, alert and oriented -3. - Labs CBC & Chem 7: 05/09/16 06:12 05/09/16 06:12 Labs: Abnormal Lab Results - Last 24 Hours (Table) 05/08/16 05/08/16 05/09/16 Range/Units 17:08 19:56 06:12 RBC (4.30-5.90) m/uL Hgb (13.0-17.5) gm/dL Hct (39.0-53.0) % Lymphocytes # (1.0-4.8) k/uL APTT (22.0-30.0) sec Chloride 96 L (98-107) mmol/L Carbon Dioxide 35 H (22-30) mmol/L BUN 63 H (9-20) mg/dL Creatinine 1.90 H (0.66-1.25) mg/dL Glucose 259 H (74-99) mg/dL POC Glucose (mg/dL) 127 H 211 H (75-99) mg/dL Calcium 7.9 L (8.4-10.2) mg/dL AST 134 H (17-59) U/L ALT 236 H (21-72) U/L Total Protein 5.5 L (6.3-8.2) g/dL Albumin 3.0 L (3.5-5.0) g/dL 05/09/16 05/09/16 05/09/16 Range/Units 06:12 06:12 06:24 RBC 3.57 L (4.30-5.90) m/uL Hgb 10.3 L (13.0-17.5) gm/dL Hct 32.3 L (39.0-53.0) % Lymphocytes # 0.7 L (1.0-4.8) k/uL APTT 50.8 H (22.0-30.0) sec Chloride (98-107) mmol/L Carbon Dioxide (22-30) mmol/L BUN (9-20) mg/dL Creatinine (0.66-1.25) mg/dL Glucose (74-99) mg/dL POC Glucose (mg/dL) 272 H (75-99) mg/dL Calcium (8.4-10.2) mg/dL AST (17-59) U/L ALT (21-72) U/L Total Protein (6.3-8.2) g/dL Albumin (3.5-5.0) g/dL 05/09/16 05/09/16 Range/Units 11:56 14:03 RBC (4.30-5.90) m/uL Hgb (13.0-17.5) gm/dL Hct (39.0-53.0) % Lymphocytes # (1.0-4.8) k/uL APTT (22.0-30.0) sec Chloride (98-107) mmol/L Carbon Dioxide (22-30) mmol/L BUN (9-20) mg/dL Creatinine (0.66-1.25) mg/dL Glucose (74-99) mg/dL POC Glucose (mg/dL) 506 H 408 H (75-99) mg/dL Calcium (8.4-10.2) mg/dL AST (17-59) U/L ALT (21-72) U/L Total Protein (6.3-8.2) g/dL Albumin (3.5-5.0) g/dL Microbiology - Last 24 Hours (Table) 05/07/16 15:45 Urine Culture - Final Urine,Catheterized Assessment and Plan Plan: Assessment and plan #1 systolic congestive heart failure acute on chronic Currently on IV Lasix. #2 troponin abnormality suggestive of non-Q-wave myocardial infarction. EKG shows normal sinus rhythm with nonspecific inferior lateral ST-T wave changes. #3 known history of coronary artery disease with prior bypass surgery, patient also states he underwent stent placement approximately 3 years ago at [facility]. #4 hypertension Number 5 diabetes #6 hyperlipidemia #7 history of nicotine dependence #8 sinus infection #9 UTI #10 abnormal LFTs, likely secondary to liver congestion #11 acute on chronic renal insufficiency Plan Cardiology's perspective, we'll continue current dose of IV Lasix. Once the patient is stable from a heart failure and renal perspective, he will need to undergo cardiac catheterization. Explained to the patient in detail. DNP note has been reviewed, I agree with a documented findings and plan of care. Patient was seen and examined.
[2016-05-09] MEDS ORDERED: INSULIN LISPRO (humaLOG) 300 UNIT/3 ML VIAL SQ ONE (14:36)
[2016-05-09 17:06] LABS: Glucose,Whole Blood 269 mg/dL (75-99)
[2016-05-09] MEDS: predniSONE 20 MG TAB PO SCH (18:13)
[2016-05-09] MEDS: HEPARIN SODIUM,PORCINE/D5W PMX 25,000 UNIT in DEXTROSE/WATER 1 500ML.BAG IV SCH (18:14)
--- NOTE | 2016-05-09 19:15 | PN ---
DATE OF SERVICE: 05/09/2016 This 75-year-old gentleman with CHF acute exacerbation also had acute non-ST elevation myocardial infarction. The patient also had kidney disease, creatinine is also elevated at 1.90. Blood sugars were also elevated up to 506. Liver function is also elevated. The patient is scheduled to undergo cardiac catheterization once the creatinine stabilized at this time. Steroid dose has been adjusted by Dr. Avelar. Past medical history reviewed. REVIEW OF SYSTEMS: CARDIOVASCULAR: As mentioned earlier. RESPIRATORY: As mentioned earlier. GASTROINTESTINAL: As mentioned earlier. : No dysuria. Nervous system: No numbness. Generalized weakness. Current medications: 1. DuoNeb q.i.d. and p.r.n. 2. Xanax 0.25 t.i.d. 3. Aspirin 320 mg daily. 4. Pulmicort 1 mg b.i.d. 5. Lasix 60 mg IV b.i.d. 6. Heparin. 7. Lantus 70 units subcu q.a.m. 8. Lantus units subcu q.h.s. 9. Humalog scale. 10. Melatonin 3 mg q.h.s. 11. Nitrostat 0.4 sublingual p.r.n. 12. Nitro-Bid ointment 1 inch q.6. 13. Protonix. 14. Prednisone 20 mg p.o. daily. 15. Flomax 0.4 daily. PHYSICAL EXAMINATION: The patient is alert and oriented times three. Pulse 72, blood pressure 120/86, respiratory rate 18, temperature 97.9, Pulse ox 97% on 3 L. HEENT: Conjunctivae normal. Oral mucosa moist. NECK: No jugular venous distention. No carotid bruit. No lymph node enlargement. CARDIOVASCULAR: S1, S2 muffled. No murmurs. No thrills. RESPIRATORY: Breath sounds diminished in the bases. A few scattered rhonchi and crackles. ABDOMEN: Soft, nontender. No mass palpable. LEGS: No edema. No swelling. CENTRAL NERVOUS SYSTEM: Higher functions as mentioned earlier. Moves all four limbs. No focal deficits. LYMPHATICS: No lymph nodes palpable in the neck, axillae or groin. SKIN: No ulcer, rash or bleeding. LABS: WBC 5.8, hemoglobin 10.3, APTT 50.8, creatinine is 1.9, Accu-Cheks are noted. LFTs are noted. ASSESSMENT: 1. Congestive heart failure, acute exacerbation, with acute on chronic systolic dysfunction; ejection 25% with acute hypoxic respiratory failure. 2. Acute non-ST elevation myocardial infarction segment with a troponin . 3. Heparin monitoring. 4. Acute on chronic kidney disease, stage III. 5. Acute urinary tract infection. 6. Diabetes mellitus type 2. 7. Hypertension. 8. History of coronary artery disease. 9. History of gait dysfunction. 10. History of chronic obstructive pulmonary disease. 11. History of nicotine dependence. 12. Hyperlipidemia. 13. Diabetes mellitus type 2, uncontrolled. 14. Increased WBC. 15. Anemia. 16. Gastroesophageal reflux disease. 17. NO CODE, NO CPR, NO VENT. Recommendations and discussion: Continue current medications. Continue symptomatic treatment. Otherwise, at this time, I would repeat insulin and I would also recommend increase the dose of nighttime insulin. Monitor liver functions closely which is showing diminishing trend. Otherwise, electrolytes are also being monitored. Hemoglobin A1C was only 8.2. We will continue to monitor. The prognosis is guarded because of multiple complex medical issues. Further recommendations to follow. Discussed with the patient and possible cardiac cath on Thursday. Repeat labs have been recommended. See orders for further details. Increase ambulation. Further recommendations to follow. MTDD
[2016-05-09] MEDS: ALPRAZolam 0.25 MG TAB PO PRN (20:49)
[2016-05-09] MEDS: MELATONIN 3 MG TABLET PO SCH (20:50)
[2016-05-09] MEDS ORDERED: INSULIN GLARGINE 100 UNIT/ML 10 ML VIAL SQ SCH (21:00)
[2016-05-09 21:20] LABS: Glucose,Whole Blood 257 mg/dL (75-99)
[2016-05-10] MEDS: HEPARIN SODIUM,PORCINE/D5W PMX 25,000 UNIT in DEXTROSE/WATER 1 500ML.BAG IV SCH ×2 (02:02→17:52)
[2016-05-10] MEDS: NITROGLYCERIN OINT 1 INCH/GM PACKET TOPICAL SCH ×4 (04:45→23:09)
[2016-05-10 06:36] LABS: Glucose,Whole Blood 402 mg/dL (75-99)
[2016-05-10 06:37] LABS: Glucose,Whole Blood 375 mg/dL (75-99)
[2016-05-10] MEDS: INSULIN LISPRO (humaLOG) 300 UNIT/3 ML VIAL SQ SCH ×5 (06:44→21:16)
[2016-05-10] MEDS: PANTOPRAZOLE 40 MG TABLET PO SCH (06:44)
[2016-05-10 06:56] LABS: Basophils # (A) 0.1 k/uL (0-0.2); Basophils % (A) 1 %; CHCM 32.8; Eosinophils % (A) 0 %; HCT 32.2 % (39.0-53.0); HDW 3.56; HGB 10.2 gm/dL (13.0-17.5); Hypochromasia Slight; Luc # (Auto) 0.34; Luc % (Auto) 4; Lymphocytes # (A) 0.9 k/uL (1.0-4.8); Lymphocytes % (A) 10 %; MCH 28.3 pg (25.0-35.0); MCHC 31.8 g/dL (31.0-37.0); Mean Platelet Volume 9.2; Monocytes # (A) 0.4 k/uL (0-1.0); Monocytes % (A) 5 %; Neutrophils # (A) 7.2 k/uL (1.3-7.7); Neutrophils % (A) 80 %; Poikilocytosis Slight; RBC 3.62 m/uL (4.30-5.90); RDW 14.7 % (11.5-15.5); WBC (Perox) 8.69
[2016-05-10 07:00] LABS: Potassium 3.8 mmol/L (3.5-5.1); Total Protein 5.5 g/dL (6.3-8.2)
[2016-05-10 07:31] LABS: Total Bilirubin 5.4 mg/dL (0.2-1.3)
[2016-05-10] MEDS: IPRATROPIUM-ALBUTEROL 3 ML NEB INHALATION SCH ×4 (07:51→20:16)
[2016-05-10] MEDS: BUDESONIDE 1 MG/2 ML NEBU INHALATION SCH ×2 (07:51→20:16)
--- NOTE | 2016-05-10 08:37 | P.PN ---
Objective - Vital Signs Vital signs: Vital Signs Temp 97 F L 05/09/16 20:00 Pulse 80 05/10/16 08:02 Resp 16 05/10/16 04:00 BP 103/52 05/10/16 04:00 Pulse Ox 92 L 05/10/16 04:00 Intake & Output 05/09/16 05/10/16 05/10/16 18:59 06:59 18:59 Intake Total 807.484 619.506 186.867 Output Total 650 2600 Balance 157.484 -1980.494 186.867 Weight 91.4 kg Intake: IV 120 0.9 @10 mls/hr 120 Intake, IV Titration 245.484 259.506 186.867 Amount Heparin Sodium,Porcine/ 245.484 259.506 186.867 D5w Pmx 25,000 unit In Dextrose/Water 1 500ml. bag @ 10.549 UNITS/KG/HR 20 mls/hr IV .Q24H [facility] Rx #:[id number] Oral 562 240 Output: Urine 650 2600 Uretheral (Liang) 500 Other: Voiding Method Indwelling Catheter Indwelling Catheter - Constitutional General appearance: Present: cooperative, no acute distress - Respiratory Respiratory: bilateral: CTA - Cardiovascular Rhythm: regular Heart sounds: normal: S1, S2 - Peripheral edema leg Peripheral Edema: bilateral: None - Gastrointestinal General gastrointestinal: Present: normal bowel sounds, soft - Labs CBC & Chem 7: 05/10/16 06:31 05/10/16 06:31 Labs: Abnormal Lab Results - Last 24 Hours (Table) 05/09/16 05/09/16 05/09/16 Range/Units 11:56 14:03 17:04 RBC (4.30-5.90) m/uL Hgb (13.0-17.5) gm/dL Hct (39.0-53.0) % Lymphocytes # (1.0-4.8) k/uL APTT (22.0-30.0) sec Chloride (98-107) mmol/L Carbon Dioxide (22-30) mmol/L BUN (9-20) mg/dL Creatinine (0.66-1.25) mg/dL Glucose (74-99) mg/dL POC Glucose (mg/dL) 506 H 408 H 269 H (75-99) mg/dL Calcium (8.4-10.2) mg/dL Total Bilirubin (0.2-1.3) mg/dL AST (17-59) U/L ALT (21-72) U/L Total Protein (6.3-8.2) g/dL Albumin (3.5-5.0) g/dL 05/09/16 05/10/16 05/10/16 Range/Units 21:19 06:31 06:31 RBC 3.62 L (4.30-5.90) m/uL Hgb 10.2 L (13.0-17.5) gm/dL Hct 32.2 L (39.0-53.0) % Lymphocytes # 0.9 L (1.0-4.8) k/uL APTT 45.9 H (22.0-30.0) sec Chloride (98-107) mmol/L Carbon Dioxide (22-30) mmol/L BUN (9-20) mg/dL Creatinine (0.66-1.25) mg/dL Glucose (74-99) mg/dL POC Glucose (mg/dL) 257 H (75-99) mg/dL Calcium (8.4-10.2) mg/dL Total Bilirubin (0.2-1.3) mg/dL AST (17-59) U/L ALT (21-72) U/L Total Protein (6.3-8.2) g/dL Albumin (3.5-5.0) g/dL 05/10/16 05/10/16 05/10/16 Range/Units 06:31 06:35 06:36 RBC (4.30-5.90) m/uL Hgb (13.0-17.5) gm/dL Hct (39.0-53.0) % Lymphocytes # (1.0-4.8) k/uL APTT (22.0-30.0) sec Chloride 94 L (98-107) mmol/L Carbon Dioxide 32 H (22-30) mmol/L BUN 68 H (9-20) mg/dL Creatinine 1.75 H (0.66-1.25) mg/dL Glucose 367 H (74-99) mg/dL POC Glucose (mg/dL) 402 H 375 H (75-99) mg/dL Calcium 8.0 L (8.4-10.2) mg/dL Total Bilirubin 5.4 H (0.2-1.3) mg/dL AST 60 H (17-59) U/L ALT 182 H (21-72) U/L Total Protein 5.5 L (6.3-8.2) g/dL Albumin 3.0 L (3.5-5.0) g/dL Assessment and Plan Plan: #1. Nonoliguric acute kidney injury secondary to cardiorenal syndrome and NSTEMI. --Renal function continues to improve. Unknown baseline creatinine. #2. History of urinary retention. Currently is a Liang catheter in place. #3. Urinary tract infection. #4. Systolic CHF with ejection fraction of 20-25% with moderate mitral regurgitation. --good diuresis. --Plan for [facility] Thursday #5. Elevated troponin. Questionable NSTEMI. #6. Insulin-dependent diabetes mellitus. #7. Rule out chronic kidney disease. Unclear as to what his baseline renal function is. He does have proteinuria noted on urinalysis which is likely due to underlying diabetic kidney disease. No hydronephrosis noted on renal ultrasound.
[2016-05-10] MEDS: FUROSEMIDE 10 MG/ML 10 ML VIAL IV SCH ×2 (09:18→21:15)
[2016-05-10] MEDS: ASPIRIN 325 MG TAB PO SCH (09:18)
[2016-05-10] MEDS: METOPROLOL TARTRATE 12.5 MG TAB PO SCH ×2 (09:18→21:16)
[2016-05-10] MEDS: TAMSULOSIN 0.4 MG CAP.ER.24H PO SCH (09:19)
[2016-05-10] MEDS: predniSONE 20 MG TAB PO SCH (09:19)
[2016-05-10] MEDS: INSULIN GLARGINE 100 UNIT/ML 10 ML VIAL SQ SCH (09:23)
[2016-05-10] MEDS ORDERED: ATORVASTATIN 80 MG TAB PO STA (10:46)
[2016-05-10] MEDS ORDERED: ALPRAZolam 0.25 MG TAB PO PRN (10:46)
[2016-05-10] MEDS ORDERED: NITROGLYCERIN SL TABS 0.4 MG TAB SUBLINGUAL PRN (10:46)
[2016-05-10] MEDS ORDERED: ASPIRIN 325 MG TAB PO STA (10:46)
[2016-05-10] MEDS ORDERED: ALPRAZolam 0.5 MG TAB PO PRN (10:46)
[2016-05-10] MEDS ORDERED: SODIUM CHLORIDE 0.9% 1,000 ML in EMPTY BAG 1 BAG IV ONE (10:46)
--- NOTE | 2016-05-10 11:05 | P.PN ---
Subjective Principal diagnosis: CHF This is a 75-year-old gentleman with history of coronary artery disease and prior bypass surgery several years ago, patient states approximately 3 years ago he underwent stent placement at [facility], he presented to [facility] with symptoms of it sinus infection as well as UTI. According to the patient he states that he was in [facility] a couple of weeks ago.sPatient states she's been feeling extremely weak at home, has not been eating for the past couple of days. He has had a productive cough of white and yellow sputum and has noticed himself to be quite wheezy. He denies having any chest pain. Along with other labs data, patient had a troponin drawn at [place] which came back to be abnormal, and for this reason the patient was transferred to [facility] for further evaluation. Troponin at [place] was 6.5. BNP level 3270. BUN 58 , creatinine 2.7, sodium 137, potassium 4.1. WBC 12.8, hemoglobin 11.1, platelet count 213. EKG on arrival there showed a normal sinus rhythm with incomplete left bundle branch block pattern and nonspecific inferior lateral ST- T wave changes. EKG on arrival here showed normal sinus rhythm and incomplete left bundle branch block pattern and minimal inferior lateral ST-T wave changes. Lab data on arrival here, hemoglobin 10.0, potassium 4.8, BUN 62, creatinine 2.4. AST 233, ALT 227, mag level I.5, BNP level 19,400, troponin 4.4 , 3.3, 2.7. Positive UTI. Echocardiogram with Doppler study was performed here which revealed an ejection fraction of 20-25% with severe global hypokinesia. Patient recently had an echocardiogram with Doppler study performed at [facility] which revealed an ejection fraction of 40 -45%. Patient continues to put out good urine, creatinine 1.7 today. Patient will be scheduled to undergo cardiac catheterization on Thursday by Dr. Aleman, the risks and the benefits were explained to the patient in detail. Objective - Vital Signs Vital signs: Vital Signs Temp 96.8 F L 05/10/16 08:00 Pulse 80 05/10/16 08:02 Resp 16 05/10/16 08:00 BP 120/60 05/10/16 08:00 Pulse Ox 89 L 05/10/16 08:00 Intake & Output 0105/10/16 05/10/16 18:59 06:59 18:59 Intake Total 807.484 619.506 186.867 Output Total 650 2600 Balance 157.484 -1980.494 186.867 Weight 91.4 kg Intake: IV 120 0.9 @10 mls/hr 120 Intake, IV Titration 245.484 259.506 186.867 Amount Heparin Sodium,Porcine/ 245.484 259.506 186.867 D5w Pmx 25,000 unit In Dextrose/Water 1 500ml. bag @ 10.549 UNITS/KG/HR 20 mls/hr IV .Q24H [facility] Rx #:[id number] Oral 562 240 Output: Urine 650 2600 Uretheral (Liang) 500 Other: Voiding Method Indwelling Catheter Indwelling Catheter - Exam PHYSICAL EXAMINATION: HEENT: Head is atraumatic, normocephalic. Pupils equal, round. Neck is supple. There is elevated jugular venous pressure. HEART EXAMINATION: S1 and S2 1 systolic murmur is heard. CHEST EXAMINATION: Lungs reveal scattered coarse wheezes with diminished air entry to bilateral bases. ABDOMEN: Soft, obese, nontender. Bowel sounds are heard. No organomegaly noted. EXTREMITIES: 2+ peripheral pulses with trace evidence of peripheral edema and no calf tenderness noted. NEUROLOGIC patient is awake, alert and oriented -3. - Labs CBC & Chem 7: 05/10/16 06:31 05/10/16 06:31 Labs: Abnormal Lab Results - Last 24 Hours (Table) 05/09/16 05/09/16 05/09/16 Range/Units 11:56 14:03 17:04 RBC (4.30-5.90) m/uL Hgb (13.0-17.5) gm/dL Hct (39.0-53.0) % Lymphocytes # (1.0-4.8) k/uL APTT (22.0-30.0) sec Chloride (98-107) mmol/L Carbon Dioxide (22-30) mmol/L BUN (9-20) mg/dL Creatinine (0.66-1.25) mg/dL Glucose (74-99) mg/dL POC Glucose (mg/dL) 506 H 408 H 269 H (75-99) mg/dL Calcium (8.4-10.2) mg/dL Total Bilirubin (0.2-1.3) mg/dL AST (17-59) U/L ALT (21-72) U/L Total Protein (6.3-8.2) g/dL Albumin (3.5-5.0) g/dL 05/09/16 05/10/16 05/10/16 Range/Units 21:19 06:31 06:31 RBC 3.62 L (4.30-5.90) m/uL Hgb 10.2 L (13.0-17.5) gm/dL Hct 32.2 L (39.0-53.0) % Lymphocytes # 0.9 L (1.0-4.8) k/uL APTT 45.9 H (22.0-30.0) sec Chloride (98-107) mmol/L Carbon Dioxide (22-30) mmol/L BUN (9-20) mg/dL Creatinine (0.66-1.25) mg/dL Glucose (74-99) mg/dL POC Glucose (mg/dL) 257 H (75-99) mg/dL Calcium (8.4-10.2) mg/dL Total Bilirubin (0.2-1.3) mg/dL AST (17-59) U/L ALT (21-72) U/L Total Protein (6.3-8.2) g/dL Albumin (3.5-5.0) g/dL 05/10/16 05/10/16 05/10/16 Range/Units 06:31 06:35 06:36 RBC (4.30-5.90) m/uL Hgb (13.0-17.5) gm/dL Hct (39.0-53.0) % Lymphocytes # (1.0-4.8) k/uL APTT (22.0-30.0) sec Chloride 94 L (98-107) mmol/L Carbon Dioxide 32 H (22-30) mmol/L BUN 68 H (9-20) mg/dL Creatinine 1.75 H (0.66-1.25) mg/dL Glucose 367 H (74-99) mg/dL POC Glucose (mg/dL) 402 H 375 H (75-99) mg/dL Calcium 8.0 L (8.4-10.2) mg/dL Total Bilirubin 5.4 H (0.2-1.3) mg/dL AST 60 H (17-59) U/L ALT 182 H (21-72) U/L Total Protein 5.5 L (6.3-8.2) g/dL Albumin 3.0 L (3.5-5.0) g/dL Assessment and Plan Plan: Assessment and plan #1 systolic congestive heart failure acute on chronic Currently on IV Lasix. #2 troponin abnormality suggestive of non-Q-wave myocardial infarction. EKG shows normal sinus rhythm with nonspecific inferior lateral ST-T wave changes. #3 known history of coronary artery disease with prior bypass surgery, patient also states he underwent stent placement approximately 3 years ago at [facility]. #4 hypertension Number 5 diabetes #6 hyperlipidemia #7 history of nicotine dependence #8 sinus infection #9 UTI #10 abnormal LFTs, likely secondary to liver congestion #11 acute on chronic renal insufficiency Plan Cardiology's perspective, we'll continue current dose of IV Lasix. catheterization will be scheduled for Thursday. Risks and benefits explained to the patient in detail. DNP note has been reviewed, I agree with a documented findings and plan of care. Patient was seen and examined.
--- NOTE | 2016-05-10 12:31 | P.PN ---
Subjective Principal diagnosis: Acute congestive heart failure his is a very pleasant 75-year-old gentleman who has a past medical history of diabetes mellitus, hypertension, hyperlipidemia, coronary artery disease with previous coronary artery bypass grafting, hypothyroidism, former smoker, chronic kidney disease, GERD. He presented here on 05/06/2016 from [facility] after initially complaining of a sinus infection and suspected urinary tract infection. However upon initial workup they found a troponin of 6.5 and called him and non-STEMI and transferred him here for the same. The patient is seen in consultation today on the selective care unit. He is awake and alert in no acute distress. He currently denies any chest pain, palpitations lightheadedness or dizziness. He still complains of some sinus pressure and congestion which originally sent him to the hospital. He had been treated with Claritin and Ceftin. No significant shortness of breath, cough or congestion. His chest x-ray does reveal evidence of pulmonary interstitial edema and pleural effusions more consistent with congestive heart failure. A two-dimensional echocardiogram reveals severely impaired left ventricular systolic function with estimated ejection fraction 20-25%. There is severe global hypokinesis noted as well. Cardiology is planning cardiac catheterization once his congestive heart failure and renal status has improved. He is still requiring 5 L/m per nasal cannula to maintain O2 saturations in the 90s. He has been afebrile. Hemodynamically stable. Patient was reevaluated today on 05/09/2016, he is feeling better, breathing a lot easier. Hardly any shortness of breath at rest, no cough, no wheezing, no chest pain. His labs were reviewed today, hemoglobin is 10.3, PTT is 51, BUN is 63 and creatinine is 1.90. Blood sugar seems to be quite elevated today and that being addressed by the admitting physician. Patient was reevaluated today on 05/10/2016, doing extremely better, breathing a lot easier. No cough no wheezing no shortness of breath. Labs were reviewed, his BUN is 68 creatinine is 1.75, and it is improved compared to how it was on admission. Creatinine was 2.42 on admission. Patient is being followed by nephrology. Pulmonary-carrizales is doing well Objective - Vital Signs Vital signs: Vital Signs Temp 96.8 F L 05/10/16 08:00 Pulse 88 05/10/16 11:59 Resp 16 05/10/16 08:00 BP 120/60 05/10/16 08:00 Pulse Ox 89 L 05/10/16 08:00 Intake & Output 05/09/16 05/10/16 05/10/16 18:59 06:59 18:59 Intake Total 807.484 619.506 186.867 Output Total 650 2600 Balance 157.484 -1980.494 186.867 Weight 91.4 kg Intake: IV 120 0.9 @10 mls/hr 120 Intake, IV Titration 245.484 259.506 186.867 Amount Heparin Sodium,Porcine/ 245.484 259.506 186.867 D5w Pmx 25,000 unit In Dextrose/Water 1 500ml. bag @ 10.549 UNITS/KG/HR 20 mls/hr IV .Q24H [facility] Rx #:[id number] Oral 562 240 Output: Urine 650 2600 Uretheral (Liang) 500 Other: Voiding Method Indwelling Catheter Indwelling Catheter Indwelling Catheter - Exam GENERAL EXAM: Alert, in no acute distress.. HEAD: Normocephalic. EYES: Normal reaction of pupils, equal size. NOSE: Clear with pink turbinates. THROAT: No erythema or exudates. NECK: No masses, no significant JVD. CHEST: No chest wall deformity. LUNGS: Equal air entry with crackles in the posterior bases. Diminished.. CVS: S1 and S2 normal with an audible murmur, regular rhythm. ABDOMEN: Obese, soft, normal bowel sounds, no guarding or rigidity. Extremities: There is 1-2+ lower extremity peripheral edema. No clubbing, no cyanosis. Peripheral pulses are intact. - Labs CBC & Chem 7: 05/10/16 06:31 05/10/16 06:31 Labs: Abnormal Lab Results - Last 24 Hours (Table) 05/09/16 05/09/16 05/09/16 Range/Units 14:03 17:04 21:19 RBC (4.30-5.90) m/uL Hgb (13.0-17.5) gm/dL Hct (39.0-53.0) % Lymphocytes # (1.0-4.8) k/uL APTT (22.0-30.0) sec Chloride (98-107) mmol/L Carbon Dioxide (22-30) mmol/L BUN (9-20) mg/dL Creatinine (0.66-1.25) mg/dL Glucose (74-99) mg/dL POC Glucose (mg/dL) 408 H 269 H 257 H (75-99) mg/dL Calcium (8.4-10.2) mg/dL Total Bilirubin (0.2-1.3) mg/dL AST (17-59) U/L ALT (21-72) U/L Total Protein (6.3-8.2) g/dL Albumin (3.5-5.0) g/dL 05/10/16 05/10/16 05/10/16 Range/Units 06:31 06:31 06:31 RBC 3.62 L (4.30-5.90) m/uL Hgb 10.2 L (13.0-17.5) gm/dL Hct 32.2 L (39.0-53.0) % Lymphocytes # 0.9 L (1.0-4.8) k/uL APTT 45.9 H (22.0-30.0) sec Chloride 94 L (98-107) mmol/L Carbon Dioxide 32 H (22-30) mmol/L BUN 68 H (9-20) mg/dL Creatinine 1.75 H (0.66-1.25) mg/dL Glucose 367 H (74-99) mg/dL POC Glucose (mg/dL) (75-99) mg/dL Calcium 8.0 L (8.4-10.2) mg/dL Total Bilirubin 5.4 H (0.2-1.3) mg/dL AST 60 H (17-59) U/L ALT 182 H (21-72) U/L Total Protein 5.5 L (6.3-8.2) g/dL Albumin 3.0 L (3.5-5.0) g/dL 05/10/16 05/10/16 Range/Units 06:35 06:36 RBC (4.30-5.90) m/uL Hgb (13.0-17.5) gm/dL Hct (39.0-53.0) % Lymphocytes # (1.0-4.8) k/uL APTT (22.0-30.0) sec Chloride (98-107) mmol/L Carbon Dioxide (22-30) mmol/L BUN (9-20) mg/dL Creatinine (0.66-1.25) mg/dL Glucose (74-99) mg/dL POC Glucose (mg/dL) 402 H 375 H (75-99) mg/dL Calcium (8.4-10.2) mg/dL Total Bilirubin (0.2-1.3) mg/dL AST (17-59) U/L ALT (21-72) U/L Total Protein (6.3-8.2) g/dL Albumin (3.5-5.0) g/dL Assessment and Plan Plan: #1 Acute exacerbation of systolic congestive heart failure with severely impaired left ventricular systolic function estimated ejection fraction 20 -25% and global hypokinesia. #2 Acute hypoxic respiratory failure secondary to above. #3 Acute non-ST segment elevation myocardial infarction. #4 History of coronary artery disease with previous coronary artery bypass grafting and subsequent stent placement. #5 Chronic nicotine addiction. #6 Diabetes mellitus. #7 Hyperlipidemia. #8 Hypertension. #9 Hypothyroidism. #10 Gastroesophageal reflux disease. #11 History of urinary retention requiring indwelling Liang catheter. #12 Acute on chronic kidney disease. #13 strongly suspect chronic obstructive pulmonary disease related to his chronic tobacco dependence syndrome. Recommendation: Continue present treatment plan, including bronchodilators, diuretics, multiple cardiac meds as listed, and I will cut down on his IV Solu- Medrol. Discharge planning likely on Thursday. Patient was switched to prednisone 20 mg daily, and that could be tapered down to 0 prednisone over the next 10 days. Time with Patient: Less than 30
[2016-05-10 12:44] LABS: Glucose,Whole Blood 449 mg/dL (75-99)
[2016-05-10 17:13] LABS: Glucose,Whole Blood 391 mg/dL (75-99)
[2016-05-10 20:56] LABS: Glucose,Whole Blood 385 mg/dL (75-99)
[2016-05-10] MEDS ORDERED: INSULIN GLARGINE 100 UNIT/ML 10 ML VIAL SQ SCH (21:00)
[2016-05-10] MEDS: HEPARIN SODIUM,PORCINE 5,000 UNIT/ML 1 ML VIAL IV PRN (21:14)
[2016-05-10] MEDS: MELATONIN 3 MG TABLET PO SCH (21:16)
[2016-05-11 05:31] LABS: Basophils # (A) 0.1 k/uL (0-0.2); Basophils % (A) 1 %; CH 28.7; CHCM 32.4; Eosinophils % (A) 0 %; HCT 32.1 % (39.0-53.0); HDW 3.51; HGB 10.2 gm/dL (13.0-17.5); Hypochromasia Slight; Luc # (Auto) 0.37; Luc % (Auto) 4; Lymphocytes # (A) 1.1 k/uL (1.0-4.8); Lymphocytes % (A) 10 %; MCH 28.4 pg (25.0-35.0); MCHC 31.8 g/dL (31.0-37.0); MCV 89.1 fL (80.0-100.0); Mean Platelet Volume 8.8; Monocytes # (A) 0.5 k/uL (0-1.0); Monocytes % (A) 4 %; Neutrophils # (A) 8.6 k/uL (1.3-7.7); Neutrophils % (A) 81 %; Poikilocytosis Slight; RDW 14.4 % (11.5-15.5); WBC 10.7 k/uL (3.8-10.6); WBC (Perox) 11.42
[2016-05-11 05:52] LABS: Calcium 7.8 mg/dL (8.4-10.2); Potassium 3.5 mmol/L (3.5-5.1); Total Bilirubin 0.4 mg/dL (0.2-1.3)
[2016-05-11] MEDS: HEPARIN SODIUM,PORCINE/D5W PMX 25,000 UNIT in DEXTROSE/WATER 1 500ML.BAG IV SCH (06:09)
[2016-05-11] MEDS: NITROGLYCERIN OINT 1 INCH/GM PACKET TOPICAL SCH ×4 (06:18→23:44)
[2016-05-11] MEDS: ASPIRIN 325 MG TAB PO SCH (06:19)
[2016-05-11] MEDS: PANTOPRAZOLE 40 MG TABLET PO SCH (06:19)
[2016-05-11] MEDS: METOPROLOL TARTRATE 12.5 MG TAB PO SCH ×2 (06:20→20:57)
[2016-05-11] MEDS: predniSONE 20 MG TAB PO SCH (06:22)
[2016-05-11 06:29] LABS: Glucose,Whole Blood 319 mg/dL (75-99)
[2016-05-11] MEDS: INSULIN LISPRO (humaLOG) 300 UNIT/3 ML VIAL SQ SCH ×7 (06:30→20:58)
--- NOTE | 2016-05-11 08:01 | P.PN ---
Subjective Principal diagnosis: Doing well. No cp/sob. Change in [facility] schedule. He is going today. Objective - Vital Signs Vital signs: Vital Signs Temp 96.9 F L 05/11/16 04:00 Pulse 87 05/11/16 04:00 Resp 16 05/11/16 04:00 BP 100/52 05/11/16 04:00 Pulse Ox 95 05/11/16 04:00 Intake & Output 05/10/16 05/11/16 05/11/16 18:59 06:59 18:59 Intake Total 500.000 519.953 Output Total 5700 Balance 500.000 -5180.047 Weight 94.5 kg Intake: IV 40 0.9 @10 mls/hr 40 Intake, IV Titration 500.000 479.953 Amount Heparin Sodium,Porcine/ 500.000 479.953 D5w Pmx 25,000 unit In Dextrose/Water 1 500ml. bag @ 10.549 UNITS/KG/HR 20 mls/hr IV .Q24H [facility] Rx #:[id number] Output: Urine 5700 Uretheral (Liang) 2850 Other: Voiding Method Indwelling Catheter Indwelling Catheter - Constitutional General appearance: Present: no acute distress - Respiratory Respiratory: bilateral: CTA - Cardiovascular Rhythm: regular Heart sounds: normal: S1, S2 - Peripheral edema leg Peripheral Edema: bilateral: Trace - Gastrointestinal General gastrointestinal: Present: soft - Labs CBC & Chem 7: 05/11/16 04:36 05/11/16 04:36 Labs: Abnormal Lab Results - Last 24 Hours (Table) 05/10/16 05/10/16 05/10/16 Range/Units 12:30 17:06 18:09 WBC (3.8-10.6) k/uL RBC (4.30-5.90) m/uL Hgb (13.0-17.5) gm/dL Hct (39.0-53.0) % Neutrophils # (1.3-7.7) k/uL APTT 44.2 H (22.0-30.0) sec Chloride (98-107) mmol/L Carbon Dioxide (22-30) mmol/L BUN (9-20) mg/dL Creatinine (0.66-1.25) mg/dL Glucose (74-99) mg/dL POC Glucose (mg/dL) 449 H 391 H (75-99) mg/dL Calcium (8.4-10.2) mg/dL ALT (21-72) U/L Total Protein (6.3-8.2) g/dL Albumin (3.5-5.0) g/dL 05/10/16 05/11/16 05/11/16 Range/Units 20:55 04:36 04:36 WBC 10.7 H (3.8-10.6) k/uL RBC 3.60 L (4.30-5.90) m/uL Hgb 10.2 L (13.0-17.5) gm/dL Hct 32.1 L (39.0-53.0) % Neutrophils # 8.6 H (1.3-7.7) k/uL APTT (22.0-30.0) sec Chloride 92 L (98-107) mmol/L Carbon Dioxide 35 H (22-30) mmol/L BUN 61 H (9-20) mg/dL Creatinine 1.60 H (0.66-1.25) mg/dL Glucose 331 H (74-99) mg/dL POC Glucose (mg/dL) 385 H (75-99) mg/dL Calcium 7.8 L (8.4-10.2) mg/dL ALT 132 H (21-72) U/L Total Protein 5.0 L (6.3-8.2) g/dL Albumin 2.7 L (3.5-5.0) g/dL 05/11/16 05/11/16 Range/Units 04:36 06:27 WBC (3.8-10.6) k/uL RBC (4.30-5.90) m/uL Hgb (13.0-17.5) gm/dL Hct (39.0-53.0) % Neutrophils # (1.3-7.7) k/uL APTT 80.5 H (22.0-30.0) sec Chloride (98-107) mmol/L Carbon Dioxide (22-30) mmol/L BUN (9-20) mg/dL Creatinine (0.66-1.25) mg/dL Glucose (74-99) mg/dL POC Glucose (mg/dL) 319 H (75-99) mg/dL Calcium (8.4-10.2) mg/dL ALT (21-72) U/L Total Protein (6.3-8.2) g/dL Albumin (3.5-5.0) g/dL Assessment and Plan Plan: #1. Nonoliguric acute kidney injury secondary to cardiorenal syndrome and NSTEMI. --Renal function continues to improve. Unknown baseline creatinine. #2. History of urinary retention. Currently is a Liang catheter in place. #3. Systolic CHF with ejection fraction of 20-25% with moderate mitral regurgitation. --Plan for [facility] changed to today. IVFs started. Will hold lasix. #4. Insulin-dependent diabetes mellitus. #5. Rule out chronic kidney disease. Unclear as to what his baseline renal function is. He does have proteinuria noted on urinalysis which is likely due to underlying diabetic kidney disease. No hydronephrosis noted on renal ultrasound.
[2016-05-11] MEDS: BUDESONIDE 1 MG/2 ML NEBU INHALATION SCH ×2 (08:21→20:49)
[2016-05-11] MEDS: IPRATROPIUM-ALBUTEROL 3 ML NEB INHALATION SCH ×4 (08:21→20:49)
--- NOTE | 2016-05-11 10:06 | PN ---
DATE OF SERVICE: 05/10/2016 This 75-year-old gentleman who presented with CHF acute exacerbation, also had acute non-ST elevation myocardial infarction. The patient is on IV heparin. Cardiology is planning cardiac catheterization on Thursday. Creatinine has improved to 1.75. Blood sugar is also elevated. PAST MEDICAL HISTORY: Reviewed. PHYSICAL EXAM: GENERAL: Alert, oriented x3. VITAL SIGNS: Pulse is 81, blood pressure 130/82, respirations 16, pulse ox 93% on 2 liters. HEENT: Conjunctive normal. NECK: No JVD. HEART: S1 and S2 normal. LUNG: Breath sounds diminished at the bases. Scattered rhonchi and crackles. ABDOMEN: Soft, nontender. EXTREMITIES: No edema. NERVOUS SYSTEM: No focal deficits. LABS: Creatinine 1.2. Occasional noted. ASSESSMENT: 1. Congestive heart failure acute exacerbation with acute on chronic systolic dysfunction. Ejection fraction 25% with acute hypoxic respiratory failure. 2. Acute non-ST elevation myocardial infarction with troponin elevated up to 3.32. 3. Heparin monitoring. 4. Acute on chronic kidney disease stage 3. 5. Acute urinary tract infection. 6. Diabetes mellitus type 2. 7. Hypertension. 8. History of coronary artery disease. 9. History of gait dysfunction. 10. History of chronic obstructive pulmonary disease. 11. History of nicotine dependence. 12. Hyperlipidemia. 13. Diabetes mellitus type 2, uncontrolled. 14. Increased WBCs. 15. History of anemia. 16. History of gastroesophageal reflux disease. 17. NO CODE, NO CPR, NO VENT. RECOMMENDATIONS: This 75-year-old gentleman presented with multiple complex medical issues. We will monitor the patient closely, continue the current medications and symptomatic treatment. Monitor creatinine closely. Blood sugar, insulin dose to be adjusted. Further recommendations to follow. Guarded prognosis. MTDD
[2016-05-11 11:28] LABS: Glucose,Whole Blood 213 mg/dL (75-99)
[2016-05-11] MEDS ORDERED: predniSONE 10 MG TAB PO SCH (12:13)
--- NOTE | 2016-05-11 12:13 | P.PN ---
Subjective Principal diagnosis: Acute congestive heart failure his is a very pleasant 75-year-old gentleman who has a past medical history of diabetes mellitus, hypertension, hyperlipidemia, coronary artery disease with previous coronary artery bypass grafting, hypothyroidism, former smoker, chronic kidney disease, GERD. He presented here on 05/06/2016 from [facility] after initially complaining of a sinus infection and suspected urinary tract infection. However upon initial workup they found a troponin of 6.5 and called him and non-STEMI and transferred him here for the same. The patient is seen in consultation today on the selective care unit. He is awake and alert in no acute distress. He currently denies any chest pain, palpitations lightheadedness or dizziness. He still complains of some sinus pressure and congestion which originally sent him to the hospital. He had been treated with Claritin and Ceftin. No significant shortness of breath, cough or congestion. His chest x-ray does reveal evidence of pulmonary interstitial edema and pleural effusions more consistent with congestive heart failure. A two-dimensional echocardiogram reveals severely impaired left ventricular systolic function with estimated ejection fraction 20-25%. There is severe global hypokinesis noted as well. Cardiology is planning cardiac catheterization once his congestive heart failure and renal status has improved. He is still requiring 5 L/m per nasal cannula to maintain O2 saturations in the 90s. He has been afebrile. Hemodynamically stable. Patient was reevaluated today on 05/09/2016, he is feeling better, breathing a lot easier. Hardly any shortness of breath at rest, no cough, no wheezing, no chest pain. His labs were reviewed today, hemoglobin is 10.3, PTT is 51, BUN is 63 and creatinine is 1.90. Blood sugar seems to be quite elevated today and that being addressed by the admitting physician. Patient was reevaluated today on 05/10/2016, doing extremely better, breathing a lot easier. No cough no wheezing no shortness of breath. Labs were reviewed, his BUN is 68 creatinine is 1.75, and it is improved compared to how it was on admission. Creatinine was 2.42 on admission. Patient is being followed by nephrology. Pulmonary-carrizales is doing well Patient was reevaluated today on 05/11/2016, continues to do well, no cough no wheezing no shortness of breath. His renal profile continues to steadily improve, and I believe he is being considered for possible cardiac catheterization. Pulmonary-carrizales no active issues. And the patient is being followed by cardiology and by nephrology. Remains on bronchodilators, and on diuretics for his congestive heart failure. Objective - Vital Signs Vital signs: Vital Signs Temp 96 F L 05/11/16 08:00 Pulse 75 05/11/16 12:07 Resp 16 05/11/16 11:36 BP 134/70 05/11/16 08:00 Pulse Ox 97 05/11/16 08:00 Intake & Output 05/10/16 05/11/16 05/11/16 18:59 06:59 18:59 Intake Total 500.000 519.953 Output Total 5700 Balance 500.000 -5180.047 Weight 94.5 kg Intake: IV 40 0.9 @10 mls/hr 40 Intake, IV Titration 500.000 479.953 Amount Heparin Sodium,Porcine/ 500.000 479.953 D5w Pmx 25,000 unit In Dextrose/Water 1 500ml. bag @ 10.549 UNITS/KG/HR 20 mls/hr IV .Q24H [facility] Rx #:[id number] Output: Urine 5700 Uretheral (Liang) 2850 Other: Voiding Method Indwelling Catheter Indwelling Catheter Indwelling Catheter - Exam GENERAL EXAM: Alert, in no acute distress.. HEAD: Normocephalic. EYES: Normal reaction of pupils, equal size. NOSE: Clear with pink turbinates. THROAT: No erythema or exudates. NECK: No masses, no significant JVD. CHEST: No chest wall deformity. LUNGS: Equal air entry with crackles in the posterior bases. Diminished.. CVS: S1 and S2 normal with an audible murmur, regular rhythm. ABDOMEN: Obese, soft, normal bowel sounds, no guarding or rigidity. Extremities: There is 1-2+ lower extremity peripheral edema. No clubbing, no cyanosis. Peripheral pulses are intact. - Labs CBC & Chem 7: 05/11/16 04:36 05/11/16 04:36 Labs: Abnormal Lab Results - Last 24 Hours (Table) 05/10/16 05/10/16 05/10/16 Range/Units 12:30 17:06 18:09 WBC (3.8-10.6) k/uL RBC (4.30-5.90) m/uL Hgb (13.0-17.5) gm/dL Hct (39.0-53.0) % Neutrophils # (1.3-7.7) k/uL APTT 44.2 H (22.0-30.0) sec Chloride (98-107) mmol/L Carbon Dioxide (22-30) mmol/L BUN (9-20) mg/dL Creatinine (0.66-1.25) mg/dL Glucose (74-99) mg/dL POC Glucose (mg/dL) 449 H 391 H (75-99) mg/dL Calcium (8.4-10.2) mg/dL ALT (21-72) U/L Total Protein (6.3-8.2) g/dL Albumin (3.5-5.0) g/dL 05/10/16 05/11/16 05/11/16 Range/Units 20:55 04:36 04:36 WBC 10.7 H (3.8-10.6) k/uL RBC 3.60 L (4.30-5.90) m/uL Hgb 10.2 L (13.0-17.5) gm/dL Hct 32.1 L (39.0-53.0) % Neutrophils # 8.6 H (1.3-7.7) k/uL APTT (22.0-30.0) sec Chloride 92 L (98-107) mmol/L Carbon Dioxide 35 H (22-30) mmol/L BUN 61 H (9-20) mg/dL Creatinine 1.60 H (0.66-1.25) mg/dL Glucose 331 H (74-99) mg/dL POC Glucose (mg/dL) 385 H (75-99) mg/dL Calcium 7.8 L (8.4-10.2) mg/dL ALT 132 H (21-72) U/L Total Protein 5.0 L (6.3-8.2) g/dL Albumin 2.7 L (3.5-5.0) g/dL 05/11/16 05/11/16 05/11/16 Range/Units 04:36 06:27 11:25 WBC (3.8-10.6) k/uL RBC (4.30-5.90) m/uL Hgb (13.0-17.5) gm/dL Hct (39.0-53.0) % Neutrophils # (1.3-7.7) k/uL APTT 80.5 H (22.0-30.0) sec Chloride (98-107) mmol/L Carbon Dioxide (22-30) mmol/L BUN (9-20) mg/dL Creatinine (0.66-1.25) mg/dL Glucose (74-99) mg/dL POC Glucose (mg/dL) 319 H 213 H (75-99) mg/dL Calcium (8.4-10.2) mg/dL ALT (21-72) U/L Total Protein (6.3-8.2) g/dL Albumin (3.5-5.0) g/dL Assessment and Plan Plan: #1 Acute exacerbation of systolic congestive heart failure with severely impaired left ventricular systolic function estimated ejection fraction 20 -25% and global hypokinesia. #2 Acute hypoxic respiratory failure secondary to above. #3 Acute non-ST segment elevation myocardial infarction. #4 History of coronary artery disease with previous coronary artery bypass grafting and subsequent stent placement. #5 Chronic nicotine addiction. #6 Diabetes mellitus. #7 Hyperlipidemia. #8 Hypertension. #9 Hypothyroidism. #10 Gastroesophageal reflux disease. #11 History of urinary retention requiring indwelling Liang catheter. #12 Acute on chronic kidney disease. #13 strongly suspect chronic obstructive pulmonary disease related to his chronic tobacco dependence syndrome. Recommendation: Continue present treatment plan, including bronchodilators, diuretics, multiple cardiac meds as listed, and I will cut down on his IV Solu- Medrol. Patient is being considered for cardiac catheterization by cardiology. However his renal functioning seems to be a bit of concern. And he is being followed by nephrology regarding his renal status. Patient is now on prednisone 20 mg daily, and I will cut it down to 10 mg daily. Time with Patient: Less than 30
[2016-05-11] MEDS ORDERED: MIDAZOLAM 2 MG/2 ML VIAL ONE (13:07)
[2016-05-11] MEDS ORDERED: diphenhydrAMINE 50 MG/ML 1 ML VIAL ONE (13:07)
[2016-05-11] MEDS ORDERED: diphenhydrAMINE 50 MG/ML 1 ML VIAL IVP ONE (13:10)
[2016-05-11] MEDS ORDERED: SODIUM CHLORIDE 0.9% 1,000 ML IV ONE (13:10)
[2016-05-11] MEDS ORDERED: MIDAZOLAM 2 MG/2 ML VIAL IVP ONE (13:10)
[2016-05-11] MEDS ORDERED: LIDOCAINE 2% INJ 20 MG/ML SQ ONE (13:11)
[2016-05-11] MEDS ORDERED: IOHEXOL 350 MG/ML 100 ML BOTTLE INJ ONE (13:34)
[2016-05-11] MEDS ORDERED: RX INFO: IV CONTRAST WAS GIVEN 1 EACH MISC MISCELLANE PRN (13:37)
[2016-05-11] MEDS ORDERED: SODIUM CHLORIDE 0.9% 1,000 ML IV SCH (13:45)
[2016-05-11] MEDS: INSULIN GLARGINE 100 UNIT/ML 10 ML VIAL SQ SCH (17:10)
[2016-05-11] MEDS: TAMSULOSIN 0.4 MG CAP.ER.24H PO SCH (17:11)
[2016-05-11 17:23] LABS: Glucose,Whole Blood 277 mg/dL (75-99)
--- NOTE | 2016-05-11 17:39 | P.PN ---
Progress Note - Text Patient underwent coronary angiography today with Dr. Aleman. No new coronary artery disease noted. Severe LV dysfunction noted I will talk to patient about ICD implantation electively
[2016-05-11 20:25] LABS: Glucose,Whole Blood 318 mg/dL (75-99)
[2016-05-11] MEDS: MELATONIN 3 MG TABLET PO SCH (20:57)
[2016-05-11] MEDS ORDERED: INSULIN GLARGINE 100 UNIT/ML 10 ML VIAL SQ SCH (21:00)
[2016-05-11 21:15] VITALS: RESP 18
[2016-05-12 05:54] LABS: Glucose,Whole Blood 188 mg/dL (75-99)
[2016-05-12 06:18] LABS: Basophils % (A) 0 %; CH 28.7; CHCM 32.1; Eosinophils % (A) 0 %; HCT 34.4 % (39.0-53.0); HDW 3.43; HGB 10.9 gm/dL (13.0-17.5); Hypochromasia Slight; Luc # (Auto) 0.24; Luc % (Auto) 2; Lymphocytes # (A) 1.7 k/uL (1.0-4.8); Lymphocytes % (A) 17 %; MCH 28.4 pg (25.0-35.0); MCHC 31.6 g/dL (31.0-37.0); MCV 89.9 fL (80.0-100.0); Mean Platelet Volume 8.2; Monocytes # (A) 0.6 k/uL (0-1.0); Monocytes % (A) 6 %; Neutrophils # (A) 7.6 k/uL (1.3-7.7); Neutrophils % (A) 75 %; Poikilocytosis Slight; RBC 3.83 m/uL (4.30-5.90); RDW 14.5 % (11.5-15.5); WBC 10.2 k/uL (3.8-10.6); WBC (Perox) 10.77
[2016-05-12 06:24] LABS: ALT 102 U/L (21-72); AST 20 U/L (17-59); Alkaline Phosphatase 96 U/L (38-126); Anion Gap 7 mmol/L; Blood Urea Nitrogen 50 mg/dL (9-20); Calcium 8.3 mg/dL (8.4-10.2); Carbon Dioxide 35 mmol/L (22-30); Chloride 100 mmol/L (98-107); Glucose 161 mg/dL (74-99); Non-African American GFR(MDRD) 50 (>60 ml/min/1.73 sqM); Potassium 3.8 mmol/L (3.5-5.1); Sodium 142 mmol/L (137-145); Total Bilirubin 0.4 mg/dL (0.2-1.3); Total Protein 5.3 g/dL (6.3-8.2)
[2016-05-12] MEDS: PANTOPRAZOLE 40 MG TABLET PO SCH (06:36)
[2016-05-12] MEDS: NITROGLYCERIN OINT 1 INCH/GM PACKET TOPICAL SCH ×2 (06:36→12:26)
[2016-05-12] MEDS: INSULIN LISPRO (humaLOG) 300 UNIT/3 ML VIAL SQ SCH ×4 (06:37→12:25)
[2016-05-12] MEDS: METOPROLOL TARTRATE 12.5 MG TAB PO SCH (08:27)
[2016-05-12] MEDS: ASPIRIN 325 MG TAB PO SCH (08:27)
[2016-05-12] MEDS: TAMSULOSIN 0.4 MG CAP.ER.24H PO SCH (08:28)
[2016-05-12] MEDS: INSULIN GLARGINE 100 UNIT/ML 10 ML VIAL SQ SCH (08:33)
--- NOTE | 2016-05-12 08:55 | PN ---
DATE OF SERVICE: 05/11/2016 This 75-year-old gentleman had presented with CHF and as well as acute non-ST elevation myocardial infarction, had cardiac catheterization today. No chest pain or palpitation. No fever. On exam, alert and oriented x3. Pulse is75, blood pressure 120/62, respirations 16, temperature is normal, pulse ox 96% on 2 L. HEENT: Conjunctivae normal, oral mucosa moist. Neck is no jugular venous distension, no carotid bruit, no lymph node enlargement. CARDIOVASCULAR SYSTEM: S1, S2, muffled, no S3, no S4. RESPIRATORY: Breath sounds diminished at the bases, a few rhonchi, no crackles. Abdomen is soft, nontender, no mass palpable. EXTREMITIES: Legs no edema, no swelling. NERVOUS SYSTEM: Higher functions as mentioned, moves all 4 limbs, no focal motor deficits. LYMPHATICS: No lymph node enlargement in the neck, axillae or groin. SKIN: No ulcer, rash or bleeding. Labs are WBC is 10.7, hemoglobin is 10.2, creatinine is 1.60, Accu-Cheks are noted. ASSESSMENT: 1. Congestive heart failure, acute exacerbation, with acute on chronic systolic dysfunction; ejection fraction 20% with acute hypoxic respiratory failure. 2. Acute xyf-VD-macofzaog myocardial infarction with the troponin elevated up to 3.32. 3. Status post cardiac cath. 4. Heparin monitoring. 5. Acute on chronic kidney disease stage III. 6. Acute urinary tract infection. 7. Diabetes mellitus type 2. 8. Hypertension. 9. Coronary artery disease. 10. History of gait dysfunction. 11. History of chronic obstructive pulmonary disease. 12. History of nicotine dependence. 13. Hyperlipidemia. 14. Diabetes mellitus type 2, uncontrolled. 15. Increased WBC. 16. History of anemia. 17. History of gastroesophageal reflux disease. 18. NO CODE, NO CARDIOPULMONARY RESUSCITATION, NO VENTILATOR. RECOMMENDATION: Recommend to continue with the current medication. Continue with the monitoring and symptomatic treatment, otherwise, monitor blood sugars closely which is still elevated, I would recommend increase the dose of Lantus further to 70 units and continue to monitor. The patient seems be having uncontrolled blood sugars. Hemoglobin was 8.2 on admission. Will continue to monitor. Further recommendations to follow. See orders for further details. Discussed with the patient who understands and agrees. SOFÍA
--- NOTE | 2016-05-12 09:48 | P.PN ---
Subjective Patient is seen in follow-up for acute kidney injury. Unclear as to what his baseline renal function is. Creatinine was 2.42 on admission and is gradually improving with creatinine down to 1.4 today. Patient presented with generalized weakness and dyspnea. He does have systolic CHF with ejection fraction of 20-25% with moderate mitral regurgitation. Also has a history of urinary retention for which he has a Liang catheter in place. He is nonoliguric. Dyspnea is improved. No vomiting or diarrhea. Appetite is good. He underwent cardiac catheterization on May 11 which revealed chronic coronary artery disease with depressed ejection fraction. Diuretics are held and he is currently on IV fluids. Vital signs are stable. General: The patient appeared well nourished and normally developed. HEENT: Head exam is unremarkable. Neck is without jugular venous distension. LUNGS: Lungs are clear to auscultation and percussion. Breath sounds decreased. HEART: Rate and Rhythm are regular. First and second heart sounds normal. No murmurs, rubs or gallops. ABDOMEN: Abdominal exam reveals normal bowel sounds. Non-tender and non- distended. No evidence of peritonitis. EXTREMITITES: No clubbing, cyanosis, or edema. Objective - Vital Signs Vital signs: Vital Signs Temp 96.2 F L 05/12/16 08:20 Pulse 84 05/12/16 08:20 Resp 18 05/12/16 08:20 BP 126/60 05/12/16 08:20 Pulse Ox 93 L 05/12/16 08:20 Intake & Output 05/11/16 05/12/16 05/12/16 18:59 06:59 18:59 Intake Total 1902 480 380 Output Total 500 950 950 Balance 1402 -470 -570 Weight 93.2 kg Intake: IV 300 Heparin Sodium,Porcine/ 200 D5w Pmx 25,000 unit In Dextrose/Water 1 500ml. bag @ 10.549 UNITS/KG/HR 20 mls/hr IV .Q24H [facility] Rx #:[id number] Intake, IV Titration 1200 Amount Sodium Chloride 0.9% 1, 1200 000 ml @ 75 mls/hr IV . [id number] [facility] Rx#:[id number] Oral 402 480 380 Output: Urine 500 950 950 Uretheral (Liang) 350 475 Other: Voiding Method Indwelling Catheter Indwelling Catheter Indwelling Catheter - Labs CBC & Chem 7: 05/12/16 05:55 05/12/16 05:55 Labs: Abnormal Lab Results - Last 24 Hours (Table) 05/11/16 05/11/16 05/11/16 Range/Units 11:25 17:13 20:24 RBC (4.30-5.90) m/uL Hgb (13.0-17.5) gm/dL Hct (39.0-53.0) % Carbon Dioxide (22-30) mmol/L BUN (9-20) mg/dL Creatinine (0.66-1.25) mg/dL Glucose (74-99) mg/dL POC Glucose (mg/dL) 213 H 277 H 318 H (75-99) mg/dL Calcium (8.4-10.2) mg/dL ALT (21-72) U/L Total Protein (6.3-8.2) g/dL Albumin (3.5-5.0) g/dL 05/12/16 05/12/16 05/12/16 Range/Units 05:51 05:55 05:55 RBC 3.83 L (4.30-5.90) m/uL Hgb 10.9 L (13.0-17.5) gm/dL Hct 34.4 L (39.0-53.0) % Carbon Dioxide 35 H (22-30) mmol/L BUN 50 H (9-20) mg/dL Creatinine 1.40 H (0.66-1.25) mg/dL Glucose 161 H (74-99) mg/dL POC Glucose (mg/dL) 188 H (75-99) mg/dL Calcium 8.3 L (8.4-10.2) mg/dL ALT 102 H (21-72) U/L Total Protein 5.3 L (6.3-8.2) g/dL Albumin 2.9 L (3.5-5.0) g/dL Assessment and Plan Plan: Assessment: #1. Nonoliguric acute kidney injury secondary to cardiorenal syndrome and NSTEMI. Creatinine improved to 1.4 today. Unclear as to what his baseline renal function is. #2. History of urinary retention. Currently is a Liang catheter in place. #3. Coronary artery disease status post cardiac catheterization on May 11. #4. Systolic CHF with ejection fraction of 20-25% with moderate mitral regurgitation. #5. Insulin-dependent diabetes mellitus. #6. Rule out chronic kidney disease. Unclear as to what his baseline renal function is. He does have proteinuria noted on urinalysis which is likely due to underlying diabetic kidney disease. No hydronephrosis noted on renal ultrasound. Plan: Hep-Lock IV fluids. Start Lasix 40 mg orally daily. Maintain Liang catheter. Avoid nephrotoxic agents and hypotensive episodes. Repeat electrolytes in the morning. Cardiology following. Will potentially require AICD.
[2016-05-12] MEDS ORDERED: FUROSEMIDE 40 MG TAB PO SCH (10:00)
[2016-05-12] MEDS: IPRATROPIUM-ALBUTEROL 3 ML NEB INHALATION SCH ×4 (11:26→16:20)
[2016-05-12] MEDS: BUDESONIDE 1 MG/2 ML NEBU INHALATION SCH (11:26)
--- NOTE | 2016-05-12 11:31 | CC ---
DATE OF SERVICE: 05/11/2016 Performing physician: Kyle Remy MD, finishing room operator. PROCEDURE PERFORMED: 1. Selective left and right coronary angiogram. 2. Left internal artery angiogram. 3. Left heart catheterization. 4. Left ventriculography. INDICATION: This is a pleasant 75-year-old gentleman with known to have severe coronary artery disease, where he underwent coronary artery bypass grafting in 1995, and the last heart catheterization was performed in 2008 and that showed the occlusion of all vein grafts and patent CONTRERAS to LAD. He is also known known to have severe ischemic cardiomyopathy. He presented to the hospital with chest discomfort and ruled in for acute non-ST elevation myocardial infarction. APPROACH: Right common femoral artery. COMPLICATIONS: None. LEVEL OF SEDATION: Moderate. PROCEDURE DESCRIPTION: After obtaining informed consent, the patient was brought to the cardiac dental laboratory technology teacher. Right common femoral artery was cannulated using micropuncture technique. The micropuncture wire passed easily, then I placed 6 Danish sheath in the right common femoral artery. Subsequently, I did selective left and right coronary angiogram using JL4 and JR4 catheters. Then I did left internal artery angiogram using the JR4 catheter. After that, I did left heart catheterization and LV gram using a 6 Danish pigtail catheter. After that, I did an aortic arch angiogram aorta as well. The procedure was completed without any complication. SELECTIVE CORONARY ANGIOGRAM: The left main is heavily calcified with critical disease in the mid shaft and distal portion. The left main, bifurcates into left circumflex and left anterior descending artery. The left circumflex is diffusely diseased up to about 80% to 90% in the proximal and midportion. The left circumflex gives rise into multiple occluded obtuse marginal branches. Left anterior descending artery is 100% occluded in the proximal portion and there is area of aneurysmal area was identified just before the occlusion. The right coronary artery is 100% occluded by the ostium. CORONARY BYPASS ANGIOGRAM: 1. The CONTRERAS to LAD is patent with a good flow in the LAD. 2. I did not do any SVG angiogram because I know they are occluded on previous heart catheterization in 2008. HEMODYNAMICS: The left ventricle end diastolic pressure was 16 mmHg and no gradient was identified across the aortic valve. Left ventriculography was performed in the RAMÍREZ projection and using a power injection. The left ventricular systolic function is severely impaired with a dilated left ventricle EF about 20% with inferior akinesia and anterior hypokinesia. AORTIC ROOT ANGIOGRAM: The aortic root angiogram was performed in the MIGUEL ANGEL projection and using a power injection. The aortic root appeared to be angiographically normal without any evidence of dissection or aneurysmal dilatation dilation. CONCLUSION: 1. Heavily calcified right and left coronary system. 2. Critical mid and distal left main disease. 3. Critical left circumflex disease. 4. Occluded left anterior descending artery. 5. Occluded right coronary artery. 6. Patent CONTRERAS to LAD. 7. Known occlusion of all vein grafts from previous heart catheterization in 2008. 8. Severe ischemic cardiomyopathy with EF about 20% with inferior akinesia and anterior hypokinesia. POSTPROCEDURE MANAGEMENT: 1. Maximize medical treatment. 2. Follow up with the patient.
[2016-05-12 11:43] LABS: Glucose,Whole Blood 87 mg/dL (75-99)
[2016-05-12 12:19] VITALS: BP 127/73; PULSE 75; TEMP 97.8
[2016-05-12 12:58] VITALS: BMI 27.8
--- NOTE | 2016-05-12 14:35 | P.PN ---
Subjective Principal diagnosis: CHF This is a 75-year-old gentleman with history of coronary artery disease and prior bypass surgery several years ago, patient states approximately 3 years ago he underwent stent placement at [facility], [place], he presented to [facility] with symptoms of it sinus infection as well as UTI. According to the patient he states that he was in [facility] a couple of weeks ago.sPatient states she's been feeling extremely weak at home, has not been eating for the past couple of days. He has had a productive cough of white and yellow sputum and has noticed himself to be quite wheezy. He denies having any chest pain. Along with other labs data, patient had a troponin drawn at [facility] which came back to be abnormal, and for this reason the patient was transferred to [facility] for further evaluation. Troponin at [facility] was 6.5. BNP level 3270. BUN 58 , creatinine 2.7, sodium 137, potassium 4.1. WBC 12.8, hemoglobin 11.1, platelet count 213. EKG on arrival there showed a normal sinus rhythm with incomplete left bundle branch block pattern and nonspecific inferior lateral ST- T wave changes. EKG on arrival here showed normal sinus rhythm and incomplete left bundle branch block pattern and minimal inferior lateral ST-T wave changes. Lab data on arrival here, hemoglobin 10.0, potassium 4.8, BUN 62, creatinine 2.4. AST 233, ALT 227, mag level I.5, BNP level 19,400, troponin 4.4 , 3.3, 2.7. Positive UTI. Echocardiogram with Doppler study was performed here which revealed an ejection fraction of 20-25% with severe global hypokinesia. Patient recently had an echocardiogram with Doppler study performed at [facility] which revealed an ejection fraction of 40 -45%. Patient underwent a cardiac catheterization yesterday that did not reveal any obstructive coronary artery disease. He will require implantation of AICD at some point for his cardiomyopathy. He continues to have a Liang catheter in place, patient straight cath himself at home. We will remove the Liang catheter. Creatinine today 1.4. We will discontinue the patient's Nitropaste. Continue metoprolol tartrate, add a low-dose ELMA inhibitor, if creatinine tolerates then we will also initiate Aldactone prior to discharge. Objective - Vital Signs Vital signs: Vital Signs Temp 97.8 F 01/23/17 11:45 Pulse 75 05/12/16 11:45 Resp 18 05/12/16 11:45 BP 127/73 05/12/16 11:45 Pulse Ox 90 L 05/12/16 11:45 Intake & Output 05/11/16 05/12/16 05/12/16 18:59 06:59 18:59 Intake Total 1902 480 580 Output Total 395 491 1668 Balance 1402 -470 -845 Weight 93.2 kg 93.2 kg Intake: IV 300 Heparin Sodium,Porcine/ 200 D5w Pmx 25,000 unit In Dextrose/Water 1 500ml. bag @ 10.549 UNITS/KG/HR 20 mls/hr IV .Q24H [facility] Rx #:[id number] Intake, IV Titration 1200 Amount Sodium Chloride 0.9% 1, 1200 000 ml @ 75 mls/hr IV . [id number] [facility] Rx#:[id number] Oral 402 480 580 Output: Urine 911 538 6257 Uretheral (Liang) 350 950 Other: Voiding Method Indwelling Catheter Indwelling Catheter Indwelling Catheter - Exam PHYSICAL EXAMINATION: HEENT: Head is atraumatic, normocephalic. Pupils equal, round. Neck is supple. There is elevated jugular venous pressure. HEART EXAMINATION: S1 and S2 1 systolic murmur is heard. CHEST EXAMINATION: Lungs reveal scattered coarse rhonchi throughout. ABDOMEN: Soft, obese, nontender. Bowel sounds are heard. No organomegaly noted. Right groin soft, no evidence of any hematoma. EXTREMITIES: 2+ peripheral pulses with trace evidence of peripheral edema and no calf tenderness noted. NEUROLOGIC patient is awake, alert and oriented -3. - Labs CBC & Chem 7: 05/12/16 05:55 05/12/16 05:55 Labs: Abnormal Lab Results - Last 24 Hours (Table) 05/11/16 05/11/16 05/12/16 Range/Units 17:13 20:24 05:51 RBC (4.30-5.90) m/uL Hgb (13.0-17.5) gm/dL Hct (39.0-53.0) % Carbon Dioxide (22-30) mmol/L BUN (9-20) mg/dL Creatinine (0.66-1.25) mg/dL Glucose (74-99) mg/dL POC Glucose (mg/dL) 277 H 318 H 188 H (75-99) mg/dL Calcium (8.4-10.2) mg/dL ALT (21-72) U/L Total Protein (6.3-8.2) g/dL Albumin (3.5-5.0) g/dL 05/12/16 05/12/16 Range/Units 05:55 05:55 RBC 3.83 L (4.30-5.90) m/uL Hgb 10.9 L (13.0-17.5) gm/dL Hct 34.4 L (39.0-53.0) % Carbon Dioxide 35 H (22-30) mmol/L BUN 50 H (9-20) mg/dL Creatinine 1.40 H (0.66-1.25) mg/dL Glucose 161 H (74-99) mg/dL POC Glucose (mg/dL) (75-99) mg/dL Calcium 8.3 L (8.4-10.2) mg/dL ALT 102 H (21-72) U/L Total Protein 5.3 L (6.3-8.2) g/dL Albumin 2.9 L (3.5-5.0) g/dL Assessment and Plan Plan: Assessment and plan #1 systolic congestive heart failure acute on chronic Currently on PO Lasix. #2 troponin abnormality suggestive of non-Q-wave myocardial infarction. EKG shows normal sinus rhythm with nonspecific inferior lateral ST-T wave changes. #3 known history of coronary artery disease with prior bypass surgery, patient also states he underwent stent placement approximately 3 years ago at [facility]. #4 hypertension Number 5 diabetes #6 hyperlipidemia #7 history of nicotine dependence #8 sinus infection #9 UTI #10 abnormal LFTs, likely secondary to liver congestion #11 acute on chronic renal insufficiency Plan Cardiology's perspective, we'll continue current dose of PO. Cardiac catheterization revealed nonobstructive coronary artery disease. Ejection fraction 2025%. We will remove the patient's Liang the patient is able to void on his own. Add small dose of ELMA inhibitor, and if creatinine remains stable consider the addition of Aldactone. Patient will require implantation of an AICD on an outpatient basis. DNP note has been reviewed, I agree with a documented findings and plan of care. Patient was seen and examined.
--- NOTE | 2016-05-12 16:07 | DS ---
DATE OF ADMISSION: 05/06/2016 DATE OF DISCHARGE: DATE OF SERVICE: 05/12/2016 FINAL DIAGNOSES: 1. Congestive heart failure, acute exacerbation; acute on chronic systolic dysfunction; ejection fraction 20% with acute hypoxic respiratory failure. 2. Status post cardiac catheterization. 3. Acute yxp-TG-lkniycz-elevation myocardial infarction; troponin elevated up to 3.32. 4. Heparin monitoring. 5. Acute on chronic kidney disease, stage III. 6. Acute urinary retention. 7. Diabetes mellitus, type 2. 8. Hypertension. 9. Coronary artery disease. 10. History of gait dysfunction. 11. History of chronic obstructive pulmonary disease. 12. History of nicotine dependence. 13. Hyperlipidemia. 14. Diabetes mellitus, type 2, uncontrolled. 15. Increased white count. 16. History of anemia. 17. History of gastroesophageal reflux disease. 18. NO CODE, NO CPR, NO VENT. DISCHARGE DISPOSITION: The patient will be discharged in stable condition with guarded prognosis. Total time taken 35 minutes. Cardiology cleared the patient for discharge. HISTORY OF PRESENT ILLNESS: This is a 75-year-old gentleman with a past medical history of multiple medical problems, including CHF, acute exacerbation, as well as acute qvz-HE-prakvkb-elevation myocardial infarction. The patient was treated in conjunction with Cardiology. Medical treatment was given. Patient improved significantly. Patient also underwent cardiac catheterization by Dr. Remy. The cardiac catheterization final report shows heavily calcified right and left coronary system, critical mid and distal left main disease, critical left circumflex disease, occluded LAD, occluded RCA, patent CONTRERAS to LAD, and known occlusion of all vein grafts from previous cardiac catheterization in 2008. Severe significant cardiomyopathy. Medication treatment was maximized. On exam, vitals are stable. CARDIOVASCULAR SYSTEM: S1, S2 muffled. RESPIRATORY SYSTEM: Breath sounds diminished at the bases. A few scattered rhonchi. ABDOMEN: Soft. NERVOUS SYSTEM: No focal deficit. Discharge diet is cardiac. Activity limited until followup. Follow up with Dr. Urban in 2 to 3 days. CBC and BMP. Follow with Cardiology as recommended. Medications will be: 1. Ecotrin 81 mg p.o. daily. 2. Symbicort 160/4.5 one puff b.i.d. 3. Ceftin 500 mg p.o. b.i.d. for 5 days. 4. Lasix 40 mg p.o. daily. 5. Lantus 70 units subcutaneously each morning. 6. Lantus 40 units subcutaneously at bedtime. 7. Albuterol Atrovent updrafts q.i.d. and p.r.n. 8. Claritin 10 mg p.o. daily. 9. Mevacor 40 mg at bedtime. 10. Lopressor 12.5 mg p.o. b.i.d. 11. Prilosec 20 mg p.o. daily. 12. Zofran 4 mg p.o. b.i.d. p.r.n. 13. Flomax 0.4 daily. 14. Prednisone 10 mg p.o. daily for 10 days, then stop. Follow up with Dr. Urban and in [facility] office. Once again, the patient will be discharged in stable condition with a guarded prognosis. CBC, BMP with Dr. Urban. MTDD
[2016-05-13] MEDS ORDERED: LISINOPRIL 2.5 MG TAB PO SCH (09:00)
--- NOTE | 2016-05-15 08:40 | CDI ---
In responding to this query, please exercise your independent professional judgment. The [facility] Coding Staff and Clinical Documentation Specialists appreciate your assistance in clarifying documentation, maintaining compliance with coding guidelines, accurately documenting patients condition and capturing severity of illness. The fact that a question is asked does not imply that any particular answer is desired or expected. Communication forms are a method of clarifying documentation and are not made part of the Legal Health Record. Thank you in advance for your clarification. Last Revision, February 2015 Sahara Morales [address] [facility] [address] [place] [address] Documentation Clarification Form Date: 05/15/2016 8:29:00 AM From: Lyly Theodore [facility] Admit Date: 05/06/2016 6:56:00 PM Patient Name: Bernardino Abernathy Visit Number: [id number] Discharge Date: 05-12-16 Dr. Ishmael Fields History/Risk Factors: Per nursing documention on 05-07-16, "Arrived to hospital with Liang". Clinical Indicators: WBC: 10.7 on 05-06-16, 12.5 on 05-08-16. Urinalysis: Collected 05-06-16= 1+ protein, Small amt blood, Large amt leukocyte, > 182 WBC, Rare amt bacteria. Urine Culture: Collected 05-07-16= Final report shows "No growth after 18 hours". Treatment: Antibiotics --Levofloxacin 750 mg IV on 05-06-16. Home on Ceftin 100 mg BID x 5 days. Please document the condition that these clinical indicators signify, whether Present on Admission, and cause if known: UTI Due to Sepsis? If due to catheter, device or implant, please document Specify organism, if known Identify location of infection (if known) Bladder, Kidney, Urethra, etc.? Contaminated specimen Unable to determine Other Please document in your progress notes and discharge summary in order to capture severity of illness and risk of mortality. Include clinical findings that support your diagnosis. FYI: Press F11 to launch patient chart. Place X here if this finding has no clinical significance, is not applicable or if you are not able to provide any additional documentation. SOFÍA
--- NOTE | 2016-05-18 10:40 | DS ---
DATE OF ADMISSION: 05/06/2016 DATE OF DISCHARGE: 05/12/2016 Addendum Please add to the FINAL DIAGNOSES: Urinary tract infection present on admission, no evidence of sepsis, possibly secondary to indwelling Liang catheter present on admission.
== END 2016-05-12 16:32 | disposition home health service (06) | DRG 280 ==
LOC: EC 16:34 → 6SEL 18:56
PROVIDERS: ADMIT Hospitalist; ATTEND Hospitalist
PROC: B2111ZZ Fluoroscopy of Multiple Coronary Arteries using Low Osmolar Contrast (ICD-10-PCS; 2016-05-11)
PROC: B2181ZZ Fluoroscopy of Left Internal Mammary Bypass Graft using Low Osmolar Contrast (ICD-10-PCS; 2016-05-11)
PROC: B2151ZZ Fluoroscopy of Left Heart using Low Osmolar Contrast (ICD-10-PCS; 2016-05-11)
PROC: B3101ZZ Fluoroscopy of Thoracic Aorta using Low Osmolar Contrast (ICD-10-PCS; 2016-05-11)
PROC: 4A023N7 Measurement of Cardiac Sampling and Pressure, Left Heart, Percutaneous Approach (ICD-10-PCS; principal; 2016-05-11 12:44)
DX: I21.4 Non-ST elevation (NSTEMI) myocardial infarction (principal); J96.01 Acute respiratory failure with hypoxia; I50.23 Acute on chronic systolic (congestive) heart failure; N17.9 Acute kidney failure, unspecified; I13.0 Hypertensive heart and chronic kidney disease with heart failure and stage 1 through stage 4 chronic kidney disease, or unspecified chronic kidney disease; I25.810 Atherosclerosis of coronary artery bypass graft(s) without angina pectoris; N39.0 Urinary tract infection, site not specified; T83.511A Infection and inflammatory reaction due to indwelling urethral catheter, initial encounter; E11.65 Type 2 diabetes mellitus with hyperglycemia; N18.3 Chronic kidney disease, stage 3 (moderate); E11.22 Type 2 diabetes mellitus with diabetic chronic kidney disease; Z66 Do not resuscitate; Z95.1 Presence of aortocoronary bypass graft; R33.9 Retention of urine, unspecified; I25.5 Ischemic cardiomyopathy; I34.0 Nonrheumatic mitral (valve) insufficiency; K21.9 Gastro-esophageal reflux disease without esophagitis; J44.9 Chronic obstructive pulmonary disease, unspecified; R79.89 Other specified abnormal findings of blood chemistry; R19.7 Diarrhea, unspecified; I25.82 Chronic total occlusion of coronary artery; E03.9 Hypothyroidism, unspecified; D64.9 Anemia, unspecified; I44.7 Left bundle-branch block, unspecified; E78.5 Hyperlipidemia, unspecified; N42.9 Disorder of prostate, unspecified; D72.829 Elevated white blood cell count, unspecified; R53.1 Weakness; J32.9 Chronic sinusitis, unspecified; R80.9 Proteinuria, unspecified; R26.9 Unspecified abnormalities of gait and mobility; I25.2 Old myocardial infarction; F17.210 Nicotine dependence, cigarettes, uncomplicated; Z87.442 Personal history of urinary calculi; Z95.5 Presence of coronary angioplasty implant and graft; Z79.4 Long term (current) use of insulin; Z88.5 Allergy status to narcotic agent; Z87.440 Personal history of urinary (tract) infections; Z86.19 Personal history of other infectious and parasitic diseases; Z87.81 Personal history of (healed) traumatic fracture; Z79.82 Long term (current) use of aspirin; Z79.899 Other long term (current) drug therapy; Z71.6 Tobacco abuse counseling; Z90.49 Acquired absence of other specified parts of digestive tract; Z96.0 Presence of urogenital implants
CPT/HCPCS: 36415; 71010; 71020; 76770; 80053; 80061; 81001; 82248; 82550; 82553; 83036; 83735; 83880; 84484; 85025; 85610; 85730; 87086; 93005; 93306; 93459; 94640; 94760; 96365; 99291